=== PATIENT | male | born 1970 | race Caucasian/White ===

== ENCOUNTER 2019-12-16 08:22 | Outpatient (CLI) | payer OTHER, SELFPAY ==
--- NOTE | ~2019-12-16 | CT_ITS ---
EXAMINATION: CTA brain DATE: 12/16/2019 09:17 INDICATION: Vision loss in left eye for 4 hours. TECHNIQUE: Computed tomographic angiography (CTA) of the head was performed without and with 100 mL O mnipaque-350 intravenous contrast. Automated exposure control and iterative reconstruction technique were employed. The dose-length product was 1040.22 mGy-cm. Maximum intensity projection 3D reconstru ctions were created. Volume-rendered 3D reconstructions of the intracranial arteries were created by the technologist on a separate workstation. COMPARISON: None. FINDINGS: There is no intracranial hemorrhage, acute infarction, or abnormal intracranial mass lesion . The ventricles are normal in size. There is mucosal thickening in the paranasal sinuses. The mastoi d air cells are normal. The orbits are normal. The vertebral arteries are codominant. There is no sig nificant stenosis of basilar artery or the posterior cerebral arteries. The posterior communicating a rteries are normal. There is no significant stenosis of the intracranial internal carotid arteries or anterior or middle cerebral arteries. Anterior communicating artery is normal. There is no aneurysm. IMPRESSION: 1. Normal brain. No aneurysm or significant arterial stenosis. Reviewed, dictated and finalized at location A.
--- NOTE | ~2019-12-16 | US_ITS ---
EXAMINATION: US right upper quadrant DATE: 12/16/2019 09:04 INDICATION: Gallbladder polyp. TECHNIQUE: Multiple grayscale and Doppler ultrasound images of the abdomen were obtained. COMPARISON: Ultrasound 03/26/2016 FINDINGS: The visualized portions of the head and body of the pancreas are normal. The liver is kelly l without focal lesion. There is normal flow in main portal vein. The gallbladder is normal in size a nd contains multiple polyps measuring up to 3 mm. No gallstones or gallbladder wall thickening. There was no sonographic Patricia sign. The common duct is normal and measures 6 mm. IMPRESSION: 1. Small polyps in the gallbladder, likely benign. No follow-up needed. Reviewed, dictated and finalized at location A.
== END 2019-12-16 08:23 | disposition home or self-care (01) ==
PROVIDERS: PCP Emergency Medicine; Visit Provider Emergency Medicine
DX: H53.9 Unspecified visual disturbance (principal); K82.4 Cholesterolosis of gallbladder
CPT/HCPCS: 70496; 76705; Q9967

== ENCOUNTER 2019-12-29 07:24 | Outpatient (CLI) | payer OTHER, SELFPAY ==
--- NOTE | ~2019-12-29 | CT_ITS ---
EXAMINATION: CTA neck DATE: 12/29/2019 08:14 INDICATION: Visual disturbance. TECHNIQUE: Computed tomographic angiography (CTA) of the neck was performed with 100 mL Omnipaque-350 intravenous contrast. Automated exposure control and iterative reconstruction technique were employe d. The dose-length product was 549.54 mGy-cm. Maximum intensity projection 3D-reconstructions were cr eated by the technologist on a separate workstation. COMPARISON: Neck CT 02/21/2016 FINDINGS: There is mild scarring at the lung apices. There is mild emphysema. There are no pathologic ally enlarged lymph nodes. There is mucosal thickening in the paranasal sinuses. There is mild plaque in the proximal internal carotid arteries. There is 0% stenosis of the proximal right internal carot id artery relative to normal distal artery lumen diameter (NASCET criteria). There is 5% stenosis of the proximal left internal carotid artery relative to normal distal artery lumen diameter. There is n o significant stenosis of the vertebral arteries. There is extensive dental disease. There is mild ce rvical spondylosis. IMPRESSION: 1. 0% stenosis of the proximal right internal carotid artery relative to normal distal artery lumen d iameter (NASCET criteria). 2. 5% stenosis of the proximal left internal carotid artery relative to normal distal artery lumen di ameter. 3. Mild emphysema. 4. Extensive dental disease. Reviewed, dictated and finalized at location A. IMPRESSION: 1. 0% stenosis of the proximal right internal carotid artery relative to normal distal artery lumen diameter (NASCET criteria). 2. 5% stenosis of the proximal left internal carotid artery relative to normal distal artery lumen diameter. 3. Mild emphysema. 4. Extensive dental disease.
== END 2019-12-29 07:25 | disposition home or self-care (01) ==
PROVIDERS: PCP Emergency Medicine; Visit Provider Emergency Medicine
DX: I65.23 Occlusion and stenosis of bilateral carotid arteries (principal); J43.9 Emphysema, unspecified
CPT/HCPCS: 70498; Q9967

== ENCOUNTER → 2020-06-16 13:58 | Outpatient (CLI) | payer OTHER, SELFPAY ==
--- NOTE | ~2020-06-16 | XR_ITS ---
EXAMINATION: HAND-KARINE ARTHRITIS 3+VIEWS DATE: 06/16/2020 14:20 INDICATION: Rheumatoid arthritis TECHNIQUE: Posteroanterior, lateral, and oblique views of the left and of the right hands as well as a ballcatchers view of both hands were obtained. COMPARISON: None. FINDINGS: Normal alignment at the bilateral hands. No fractures. No cortical erosions to suggest an inflammator y arthritis. Mild polyarticular osteoarthritis characterized by mild nonuniform joint space narrowing and/or tiny marginal osteophytes at multiple bilateral interphalangeal joints. Bone islands at the h martha of the bilateral fifth metacarpals. IMPRESSION: 1. 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 No erosions to sug gest an inflammatory arthritis such as rheumatoid. Reviewed, dictated and finalized at location A. IAL AGENT SECRET SERVICE IMPRESSION: 1. Mild polyarticular osteoarthritis at multiple bilateral interphalangeal join ts. No erosions to suggest an inflammatory arthritis such as rheumatoid.
== END ==
PROVIDERS: PCP Internal Medicine; Visit Provider Internal Medicine
DX: M06.841 Other specified rheumatoid arthritis, right hand (principal); M06.842 Other specified rheumatoid arthritis, left hand
CPT/HCPCS: 73130

== ENCOUNTER 2022-06-27 10:10 | Outpatient (CLI) | payer OTHER, SELFPAY ==
--- NOTE | ~2022-06-27 | CT_ITS ---
EXAMINATION: CT lung screening DATE: 06/27/2022 10:28 INDICATION: Personal history of nicotine dependence, 35 pack year history TECHNIQUE: Computed tomography (CT) of the chest was performed without intravenous contrast. The dose -length product (DLP) was 73.99 mGy-cm. Automated exposure control and iterative reconstruction techn ique were employed. COMPARISON: None FINDINGS: There is mild emphysema. No suspicious pulmonary nodules are identified. The lungs are free of acute opacities. No pleural effusion or pneumothorax. No pathologically enlarged thoracic lymph n odes are identified. The heart size is normal. There is moderate thoracic spondylosis. IMPRESSION: 1. Lung-RADS category 1: Negative. Continue annual screening with noncontrast low-dose chest CT in 12 months. Reviewed, dictated and finalized at location A. AIMER IMPRESSION: 1. Lung-RADS category 1: Negative. Continue annual screening with noncontrast l ow-dose chest CT in 12 months.
== END 2022-06-27 10:11 | disposition home or self-care (01) ==
LOC: ANHIMG 10:14
PROVIDERS: PCP Emergency Medicine; Visit Provider Emergency Medicine
DX: Z12.2 Encounter for screening for malignant neoplasm of respiratory organs (principal); Z87.891 Personal history of nicotine dependence
CPT/HCPCS: 71271

== ENCOUNTER 2023-09-24 09:23 | Outpatient (CLI) | payer OTHER, SELFPAY ==
--- NOTE | ~2023-09-24 | CT_ITS ---
CT Scan of the Chest without Contrast: Clinical Indication: Lung cancer screening, personal history of nicotine dependence Technique: Contiguous sections were acquired throughout the chest without intravenous contrast. Dose reduction technique was used on this scan by utilizing automated exposure control and iterative recon struction technique. The dose-length product (DLP) was 73.24 mGy-cm. COMPARISON: 06/27/2022 Findings: There is no evidence of any significant mediastinal, hilar or axillary lymphadenopathy. The mediastin al soft tissues appear normal. There is no evidence of pleural or pericardial effusion. The lungs are clear. No pulmonary nodules or infiltrates are noted. Images through the upper abdomen reveal no abnormalities. Impression: Lung RADS 1: Negative. 12 month follow-up screening CT advised. Reviewed, dictated and finalized at location . Impression: Lung RADS 1: Negative. 12 month follow-up screening CT advised.
== END 2023-09-24 09:24 | disposition home or self-care (01) ==
LOC: ANHIMG 09:28
PROVIDERS: PCP Emergency Medicine; Visit Provider Emergency Medicine
DX: Z12.2 Encounter for screening for malignant neoplasm of respiratory organs (principal); Z87.891 Personal history of nicotine dependence
CPT/HCPCS: 71271

== ENCOUNTER 2024-11-10 10:30 | Outpatient (CLI) | payer OTHER, SELFPAY ==
--- NOTE | ~2024-11-10 | CT_ITS ---
CT Scan of the Chest without Contrast: Clinical Indication: Lung cancer screening, nicotine dependence Technique: Contiguous sections were acquired throughout the chest without intravenous contrast. Dose reduction technique was used on this scan by utilizing automated exposure control and iterative recon struction technique. The dose-length product (DLP) was 70.37 mGy-cm. COMPARISON: 09/24/2023 Findings: There is no evidence of any significant mediastinal, hilar or axillary lymphadenopathy. The mediastin al soft tissues appear normal. There is no evidence of pleural or pericardial effusion. The lungs are clear. No pulmonary nodules or infiltrates are noted. Images through the upper abdomen reveal no abnormalities. Impression: Lung RADS 1: Negative. 12 month follow-up screening CT advised. Reviewed, dictated and finalized at location . Impression: Lung RADS 1: Negative. 12 month follow-up screening CT advised.
--- OUTSIDE RECORDS SUMMARY | 2024-11-10 11:46 | XMS_ITS | Continuity of Care Document ---
Author Organization [facility] Address [address] [place] [address] Phone Care Team Providers Care Surgical Sales Representative Name Role Phone Iain Johnson MD Unavailable Unavailable Advance Directives Directive Yes / No Effective Date File Name No Information Encounters Encounter Description Practice Location Reason(s) For Visit Diagnoses Date Provider Providers Copied on Encounter [facility], [address], [place], [place], [id number], [place] tel:[phone] [address] [place] Professional No Information [address] Alex Timmons. [address] [facility] [address], [place], [place], [id number], [place]. tel:[phone] Family History Family Member Type Diagnosis Age At Onset No Information Payers Payer name Insurance type Covered alliance party ID Authoriza tion(s) No Information Social History Type Description Quantity Date Captured Comments Sex Male Smoking Status No Information Chief Complaint And Reason For Visit No Information Reason For Referral Reason For Referral No Information History Of Present Illness Encounter Date Complaint History Of Prese nt Illness No Information Functional Status Date Functional Assessmen t No Information Instructions Date Instruction Additional Infor mation No Information Assessments Type Assessment Date No Information Patient Care Teams Name Effective Dates (start - stop) Status Members No Information
--- OUTSIDE RECORDS SUMMARY | 2024-11-10 11:46 | XMS_ITS | Referral Summary ---
Author Organization [facility] al Address [address] [place] [address] Care Team Providers Care Mill Beam Fitter Name Role Phone Yoshi Toscano MD Primary Care Provider [phone] Allergies Active Allergy Reactions Criticality Noted Date Comments Latex Hives,Other (See comments) Medium 7 blisters Pollen Extracts Hives Medium 10/07/2016 Scallops Other (See comments) Low 10/07/2016 Per skin test Medications pantoprazole DR (PROTONIX) 40 mg EC tabletIndication s:Stress Ulcer Prophylaxis Take 1 tablet (40 mg total) by mouth 2 (two) times a day 60 tablet 05/14/2021 Active Active Problems Problem Noted Date Diagnosed Date Severe malnutrition 05/11/2021 Acute pancreatitis 05/09/2021 Gastritis without bleeding 05/09/2021 Crohn disease 05/09/2021 Rheumatoid arthritis 05/09/2021 Other emphysema 05/09/2021 Social History Tobacco Use Types Packs/Day Years Used Date Smoking Tobacco: Former Smokeless Tobacco: Former Personal Safety Answer Date Recorded Getting School Help Needed Not on file 09/07 Sex and Gender Information Value Date Recorded Sex Assigned at Not on file 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 Gender Identity Not on file Sexual Orientation Not on file Last Filed Vital Signs Vital Sign Reading Time Taken Comments Blood Pressure 118/80 05/14/2021 2:52 PM CDT Pulse 62 05/14/2021 2:52 PM CDT Temperature 36.7 C (98 F) 05/14/2021 2:52 PM CDT Respiratory Rate 16 05/14/2021 2:52 PM CDT Oxygen Saturation 98% 05/14/2021 2:52 PM CDT Inhaled Oxygen Concentration - - Weight 50.5 kg (111 lb 4.8 oz) 05/10/2021 2:20 A M CDT Height 167.6 cm (5' 6 ) 05/10/2021 2:20 AM CDT Body Mass Index 17.96 05/10/2021 2:20 AM CDT Plan of Treatment Not on file Insurance Advance Directives For more information, please contact: [phone] * Full Code (Latest Code Status on File) Date Activated Date Inactivated Comments 05/10/2021 2:15 AM 05/15/2021 12:05 AM Care Teams Mill Beam Fitter Relationship Specialty Start Date End Date Yoshi Toscano MD PCP - General 10/10/16
--- OUTSIDE RECORDS SUMMARY | 2024-11-10 11:46 | XMS_ITS | Clinical Summary ---
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) Rheumatoid arthritis involving multiple sites with positive rheumatoid factor - (Added by TW Conv) Other ferry terminal agent (current) drug therapy High risk medications (not anticoagulants) long-term use - (Added by TW Conv) Family History Medical History Relation Name Comments Diabetes Mother Hypertension Mother Arthritis Paternal Grandmother Relation Name Status Comments Mother Paternal Grandmother Social History Tobacco Use Types Packs/Day Years Used Date Smoking Tobacco: Former Smokeless Tobacco: Former Personal Safety Answer Date Recorded Getting School Help Needed Not on file 09/07 Sex and Gender Information Value Date Recorded Sex Assigned at Not on file 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
--- OUTSIDE RECORDS SUMMARY | 2024-11-10 11:46 | XMS_ITS | Continuity of Care Document ---
Author Organization [facility] Address [address] [place] [address] [place] [address] Phone Care Team Providers [employer] Name Role Phone Yoshi Toscano MD Unavailable Unavailable Allergies, Adverse Reactions, Alerts Substance Reaction Status Criticality No Known Allergies Active No Inform ation Medications Medication Instructions Dosage Effective Dates (start - stop) Status Comments hydrocodone 7.5 mg-acetaminophen 325 mg tablet take 1 tablet by oral route 2 times every day as needed for pain as needed 1 tablet - Active PRN for pain, avoid driving or operate machines albuterol sulfate HFA 90 mcg/actuation aerosol inhaler inhale 1 puff by inhalation route every 4 - 6 hours as needed 1 puff - Active PRN for sob Plaquenil 200 mg tablet take 1 tablet by oral route 2 times every day 200 MG - Active Procedures Procedure Date OFFICE/OUTPATIENT VISIT, EST OFFICE/OUTPATIENT VISIT, EST OFFICE/OUTPATIENT VISIT, EST OFFICE/OUTPATIENT VISIT, EST OFFICE/OUTPATIENT VISIT, EST OFFICE/OUTPATIENT VISIT, EST PREV VISIT, EST, AGE 40-64 OFFICE/OUTPATIENT VISIT, EST OFFICE/OUTPATIENT VISIT, EST OFFICE/OUTPATIENT VISIT, EST OFFICE/OUTPATIENT VISIT, EST OFFICE/OUTPATIENT VISIT, EST OFFICE/OUTPATIENT VISIT, EST OFFICE/OUTPATIENT VISIT, EST OFFICE/OUTPATIENT VISIT, EST OFFICE/OUTPATIENT VISIT, EST OFFICE/OUTPATIENT VISIT, EST OFFICE/OUTPATIENT VISIT, EST OFFICE/OUTPATIENT VISIT, EST OFFICE/OUTPATIENT VISIT, EST OFFICE/OUTPATIENT VISIT, EST OFFICE/OUTPATIENT VISIT, EST OFFICE/OUTPATIENT VISIT, EST PREV VISIT, EST, AGE 40-64 Dec- OFFICE/OUTPATIENT VISIT, EST OFFICE/OUTPATIENT VISIT, EST OFFICE/OUTPATIENT VISIT, EST OFFICE/OUTPATIENT VISIT, EST OFFICE/OUTPATIENT VISIT, EST OFFICE/OUTPATIENT VISIT, EST OFFICE/OUTPATIENT VISIT, EST OFFICE/OUTPATIENT VISIT, EST OFFICE/OUTPATIENT VISIT, EST OFFICE/OUTPATIENT VISIT, EST OFFICE/OUTPATIENT VISIT, EST OFFICE/OUTPATIENT VISIT, EST PREV VISIT, EST, AGE 40-64 November- OFFICE/OUTPATIENT VISIT, EST OFFICE/OUTPATIENT VISIT, EST OFFICE/OUTPATIENT VISIT, EST OFFICE/OUTPATIENT VISIT, EST OFFICE/OUTPATIENT VISIT, EST OFFICE/OUTPATIENT VISIT, EST OFFICE/OUTPATIENT VISIT, EST OFFICE/OUTPATIENT VISIT, EST OFFICE/OUTPATIENT VISIT, EST OFFICE/OUTPATIENT VISIT, EST OFFICE/OUTPATIENT VISIT, EST OFFICE/OUTPATIENT VISIT, EST OFFICE/OUTPATIENT VISIT, EST OFFICE/OUTPATIENT VISIT, EST OFFICE/OUTPATIENT VISIT, EST OFFICE/OUTPATIENT VISIT, EST OFFICE/OUTPATIENT VISIT, EST OFFICE/OUTPATIENT VISIT, EST OFFICE/OUTPATIENT VISIT, EST PREV VISIT, EST, AGE 40-64 OFFICE/OUTPATIENT VISIT, EST OFFICE/OUTPATIENT VISIT, EST OFFICE/OUTPATIENT VISIT, EST OFFICE/OUTPATIENT VISIT, EST OFFICE/OUTPATIENT VISIT, EST OFFICE/OUTPATIENT VISIT, EST OFFICE/OUTPATIENT VISIT, EST OFFICE/OUTPATIENT VISIT, EST OFFICE/OUTPATIENT VISIT, EST OFFICE/OUTPATIENT VISIT, EST OFFICE/OUTPATIENT VISIT, EST OFFICE/OUTPATIENT VISIT, EST PREV VISIT, EST, AGE 40-64 OFFICE/OUTPATIENT VISIT, EST OFFICE/OUTPATIENT VISIT, EST OFFICE/OUTPATIENT VISIT, EST OFFICE/OUTPATIENT VISIT, EST OFFICE/OUTPATIENT VISIT, EST OFFICE/OUTPATIENT VISIT, EST OFFICE/OUTPATIENT VISIT, EST OFFICE/OUTPATIENT VISIT, EST OFFICE/OUTPATIENT VISIT, EST OFFICE/OUTPATIENT VISIT, EST PREV VISIT, EST, AGE 40-64 OFFICE/OUTPATIENT VISIT, EST OFFICE/OUTPATIENT VISIT, EST OFFICE/OUTPATIENT VISIT, EST OFFICE/OUTPATIENT VISIT, EST OFFICE/OUTPATIENT VISIT, EST OFFICE/OUTPATIENT VISIT, EST OFFICE/OUTPATIENT VISIT, EST OFFICE/OUTPATIENT VISIT, EST PREV VISIT, EST, AGE 40-64 OFFICE/OUTPATIENT VISIT, EST OFFICE/OUTPATIENT VISIT, EST OFFICE/OUTPATIENT VISIT, EST OFFICE/OUTPATIENT VISIT, EST OFFICE/OUTPATIENT VISIT, EST OFFICE/OUTPATIENT VISIT, EST OFFICE/OUTPATIENT VISIT, EST OFFICE/OUTPATIENT VISIT, EST OFFICE/OUTPATIENT VISIT, EST PREV VISIT, EST, AGE 40-64 OFFICE/OUTPATIENT VISIT, EST OFFICE/OUTPATIENT VISIT, EST OFFICE/OUTPATIENT VISIT, EST OFFICE/OUTPATIENT VISIT, EST OFFICE/OUTPATIENT VISIT, EST OFFICE/OUTPATIENT VISIT, EST OFFICE/OUTPATIENT VISIT, EST OFFICE/OUTPATIENT VISIT, EST OFFICE/OUTPATIENT VISIT, EST OFFICE/OUTPATIENT VISIT, EST OFFICE/OUTPATIENT VISIT, EST OFFICE/OUTPATIENT VISIT, EST OFFICE/OUTPATIENT VISIT, EST OFFICE/OUTPATIENT VISIT, EST OFFICE/OUTPATIENT VISIT, EST Advance Directives Directive Yes / No Effective Date File Name No Information Encounters Encounter Description Practice Location Reason(s) For Visit Diagnoses Date Provider Providers Copied on Encounter OFFICE/OUTPA TIENT VISIT, [facility], [address] [place], [address], tel:[phone] [facility] Medicine pain (chief complaint) Chronic pain syndrome 5 Everton Belle. [address], [address] [place], [address] , [place]. tel:[phone] OFFICE/OUTPA TIENT VISIT, [facility], [address] [place], [address], tel:[phone] [facility] Medicine pain (chief complaint)te nsion (chief complaint)to bacco1 (chief complaint) Chronic pain syndromeTension headachePersonal history of nicotine dependence 5 Everton Belle. [address], [address] [place], [address] , [place]. tel:[phone] OFFICE/OUTPA TIENT VISIT, [facility], [address], [place], [place], [address], [place] tel:[phone] [facility] Family Medicine pain (chief complaint)he adache1 (chief complaint) Chronic pain syndromeTension headache 5 Everton Florian [address], [address], [place], [place], [address] , [place]. tel:[phone] OFFICE/OUTPA TIENT VISIT, EST [facility], [address], [place], [place], [address], [place] tel:[phone] [facility] pain (chief complaint)he adache1 (chief complaint) Tension headacheChronic pain syndrome 5 Everton Florian [address], [address], [place], [place], [address] , [place]. tel:[phone] OFFICE/OUTPA TIENT VISIT, EST [facility], [address], [place], [place], [address], [place] tel:[phone] [facility] pain (chief complaint)CO PD1 (chief complaint) Centrilobular emphysemaChronic pain syndrome 4 Everton Florian [address], [address], [place], [place], [address] , [place]. tel:[phone] OFFICE/OUTPA TIENT VISIT, EST [facility], [address], [place], [place], [address], [place] tel:[phone] [facility] Medicine glucose1 (chief complaint)HL P (chief complaint)RA (chief complaint) Rheumatoid arthritisHypergly cemiaMixed hyperlipidemia 4 Everton Florian [address], [address], [place], [place], [address] , [place]. tel:[phone] PREV VISIT, EST, AGE 40-64 [facility], [address], [place], [place], [address], [place] tel:[phone] [facility] Medicine physical (chief complaint) Encounter for general adult medical examination without abnormal findings 4 Everton Belle. [address], [address], [place], [place], [address] , [place]. tel:[phone] OFFICE/OUTPA TIENT VISIT, EST [facility], [address], [place], [place], [address], [place] tel:[phone] [facility] Family Medicine pain (chief complaint) Rheumatoid arthritisChronic pain syndrome 4 Toscano Yoshi. [address], [address], [place], [place], [address] , [place]. tel:[phone] OFFICE/OUTPA TIENT VISIT, [facility], [address], [place], [place], [address], [place] tel:[phone] [facility] Medicine pain (chief complaint) Chronic pain syndrome 4 Toscano Yoshi. [address], [address], [place], [place], [address] , [place]. tel:[phone] OFFICE/OUTPA TIENT VISIT, [facility], [address], [place], [place], [address], [place] tel:[phone] [facility] Medicine pain (chief complaint) Rheumatoid arthritis 4 Toscano Yoshi. [address], [place], [place], [address] , [place]. tel:[phone] OFFICE/OUTPA TIENT VISIT, [facility], [address], [place], [place], [address], [place] tel:[phone] [facility] RA (chief complaint) Rheumatoid arthritis 4 Toscano Yoshi. [address], [address], [place], [place], [address] , [place]. tel:[phone] OFFICE/OUTPA TIENT VISIT, [facility], [address], [place], [place], [address], [place] tel:[phone] [facility] RA (chief complaint) Chronic pain syndrome 4 Toscano Yoshi. [address], [address], [place], [place], [address] , [place]. tel:[phone] OFFICE/OUTPA TIENT VISIT, [facility], [address], [place], [place], [address], [place] tel:[phone] [facility] Medicine pain (chief complaint) Chronic pain syndrome 4 Toscano Yoshi. [address], [address], [place], [place], [address] , [place]. tel:[phone] OFFICE/OUTPA TIENT VISIT, [facility], [address], [place], [address], [place] tel:[phone] [facility] Medicine pain (chief complaint) Chronic pain syndromeTobacco use 4 Toscano Yoshi. [address], [place], [place], [address] , [place]. tel:[phone] OFFICE/OUTPA TIENT VISIT, [facility], [address], [place], [place], [address], [place] tel:[phone] [facility] Medicine pain (chief complaint)CO PD1 (chief complaint)to bacco1 (chief complaint) Centrilobular emphysemaChronic pain syndromeTobacco use 4 Toscano Yoshi. [address], [place], [place], [address] , [place]. tel:[phone] OFFICE/OUTPA TIENT VISIT, [facility], [address], [place], [place], [address], [place] tel:[phone] [facility] Medicine pain (chief complaint)ga llbladder1 (chief complaint) Cholesterolosis of gallbladderChroni c pain syndrome 4 Everton Belle. [address], [address], [place], [place], [address] , [place]. tel:[phone] OFFICE/OUTPA TIENT VISIT, [facility], [address], [place], [place], [address], [place] tel:[phone] [facility] Medicine pain (chief complaint) Chronic pain syndrome 4 Toscano Yoshi. [address], [address], [place], [place], [address] , [place]. tel:[phone] OFFICE/OUTPA TIENT VISIT, [facility], [address], [place], [place], [address], [place] tel:[phone] [facility] Medicine pain (chief complaint) Chronic pain syndrome 3 Toscano Yoshi. [address], [place], [place], [address] , [place]. tel:[phone] OFFICE/OUTPA TIENT VISIT, [facility], [address], [place], [place], [address], [place] tel:[phone] [facility] Medicine pain (chief complaint) Chronic pain syndrome 3 Toscano Yoshi. [address], [place], [place], [address] , [place]. tel:[phone] OFFICE/OUTPA TIENT VISIT, [facility], [address], [place], [place], [address], [place] tel:[phone] [facility] Medicine pain (chief complaint)CO PD1 (chief complaint) Centrilobular emphysemaChronic pain syndrome 3 Toscano Yoshi. [address], [place], [place], [address] , [place]. tel:[phone] OFFICE/OUTPA TIENT VISIT, [facility], [address], [place], [place], [address], [place] tel:[phone] [facility] Medicine pain (chief complaint) Chronic pain syndrome 3 Toscano Yoshi. [address], [place], [place], [address] , [place]. tel:[phone] OFFICE/OUTPA TIENT VISIT, [facility], [address], [place], [place], [address], [place] tel:[phone] [facility] Medicine pain (chief complaint) Chronic pain syndrome 3 Toscano Yoshi. [address], [address], [place], [place], [address] , [place]. tel:[phone] OFFICE/OUTPA TIENT VISIT, [facility], [address], [place], [place], [address], [place] tel:[phone] [facility] Medicine pain (chief complaint) Chronic pain syndrome 3 Everton Belle. [address], [address], [place], [place], [address] , [place]. tel:[phone] PREV VISIT, EST, AGE 40-64 [facility], [address], [place], [place], [address], [place] tel:[phone] [facility] physical (chief complaint) Encounter for general adult medical examination without abnormal findings 3 Everton Belle. [address], [place], [place], [address] , [place]. tel:[phone] OFFICE/OUTPA TIENT VISIT, [facility], [address], [place], [place], [address], [place] tel:[phone] [facility] Medicine pain (chief complaint)ga llbladder1 (chief complaint) Cholesterolosis of gallbladderChroni c pain syndrome 3 Everton Belle. [address], [place], [place], [address] , [place]. tel:[phone] OFFICE/OUTPA TIENT VISIT, [facility], [address], [place], [place], [address], [place] tel:[phone] [facility] Medicine pain (chief complaint)ga llbladder (chief complaint) Chronic pain syndromeCholester olosis of gallbladder 3 Everton Belle. [address], [place], [place], [address] , [place]. tel:[phone] OFFICE/OUTPA TIENT VISIT, EST [facility], [address], [place], [address], [place] tel:[phone] [facility] Medicine pain (chief complaint) Chronic pain syndrome 3 Everton Belle. [address], [address], [place], [address] , [place]. tel:[phone] OFFICE/OUTPA TIENT VISIT, [facility], [address], [place], [place], [address], [place] tel:[phone] [facility] pain (chief complaint)CO PD1 (chief complaint) Chronic pain syndromeCentrilob ular emphysema 3 Everton Belle. [address], [place], [place], [address] , [place]. tel:[phone] OFFICE/OUTPA TIENT VISIT, [facility], [address], [place], [place], [address], [place] tel:[phone] [facility] pain (chief complaint)to bacco1 (chief complaint) Centrilobular emphysemaChronic pain syndrome 3 Everton Belle. [address], [place], [place], [address] , [place]. tel:[phone] OFFICE/OUTPA TIENT VISIT, [facility], [address], [place], [place], [address], [place] tel:[phone] [facility] HLP (chief complaint)pa in (chief complaint)fa tigue1 (chief complaint) Mixed hyperlipidemiaChr onic pain syndromeTobacco useFatigue 2 Everton Belle. [address], [place], [place], [address] , [place]. tel:[phone] OFFICE/OUTPA TIENT VISIT, [facility], [address], [place], [place], [address], [place] tel:[phone] [facility] pain (chief complaint)CO PD1 (chief complaint)fa tigue1 (chief complaint) Chronic pain syndromeTobacco useCentrilobular emphysemaFatigueB PH w/o lower urinary tract symptoms 2 Everton Belle. [address], [place], [place], [address] , [place]. tel:[phone] OFFICE/OUTPA TIENT VISIT, [facility], [address], [place], [place], [address], [place] tel:[phone] [facility] Medicine pain (chief complaint) Chronic pain syndromeTobacco use 2 Everton Belle. [address], [address], [place], [place], [address] , [place]. tel:[phone] OFFICE/OUTPA TIENT VISIT, [facility], [address], [place], [place], [address], [place] tel:[phone] [facility] Medicine pain (chief complaint)to bacco1 (chief complaint) Chronic pain syndromeTobacco use 2 Everton Belle. [address], [place], [place], [address] , [place]. tel:[phone] OFFICE/OUTPA TIENT VISIT, [facility], [address], [place], [place], [address], [place] tel:[phone] [facility] Medicine pain (chief complaint)pa ncreatitis1 (chief complaint) Chronic pain syndromeOther acute pancreatitis without necrosis or infection 2 Everton Belle. [address], [place], [address] , [place]. tel:[phone] OFFICE/OUTPA TIENT VISIT, [facility], [address], [place], [place], [address], [place] tel:[phone] [facility] pain (chief complaint)em physema1 (chief complaint) Centrilobular emphysemaChronic pain syndrome 2 Everton Yoshi. [address], [place], [place], [address] , [place]. tel:[phone] OFFICE/OUTPA TIENT VISIT, [facility], [address], [place], [place], [address], [place] tel:[phone] [facility] Medicine pain1 (chief complaint)ga llbladder polyp1 (chief complaint)sl eep apnea1 (chief complaint) Rheumatoid arthritisAcute pancreatitis w/o necrosisCholester olosis of gallbladderPrimar y central sleep apnea 2 Toscano Yoshi. [address], [place], [place], [address] , [place]. tel:[phone] PREV VISIT, EST, AGE 40-64 [facility], [address], [place], [place], [address], [place] tel:[phone] [facility] physical (chief complaint) Encounter for general adult medical examination without abnormal findings 2 Everton Belle. [address], [address], [place], [place], [address] , [place]. tel:[phone] OFFICE/OUTPA TIENT VISIT, EST [facility], [address], [place], [place], [address], [place] tel:[phone] [facility] pain (chief complaint)sl eep apnea1 (chief complaint)CO PD1 (chief complaint) Primary central sleep apneaCentrilobula r emphysemaChronic pain syndromeChronic pancreatitis NOS 2 Everton Florian [address], [address], [place], [place], [address] , [place]. [phone] OFFICE/OUTPA TIENT VISIT, EST [facility], [address], [place], [place], [address], [place] tel:[phone] [facility] sleep apnea1 (chief complaint)pa ncreatitis1 (chief complaint)RA (chief complaint)CO PD1 (chief complaint) EmphysemaSleep apneaAcute pancreatitis w/o necrosisRheumatoi d arthritis 2 Everton Florian [address], [address], [place], [place], [address] , [place]. [phone] OFFICE/OUTPA TIENT VISIT, EST [facility], [address], [place], [place], [address], [place] tel:[phone] [facility] RA (chief complaint)pa ncreatitis1 (chief complaint) Rheumatoid arthritisChronic pancreatitis NOS 2 Everton Belle. [address], [address], [place], [place], [address] , [place]. tel:[phone] OFFICE/OUTPA TIENT VISIT, [facility], [address], [place], [place], [address], [place] tel:[phone] [facility] sleep apnea1 (chief complaint)pa in1 (chief complaint)pa ncreatitis1 (chief complaint)CO PD1 (chief complaint) Chronic pain syndromeSleep apneaCrohn's disease of large intestine without complicationsAcut e pancreatitis w/o necrosisEmphysema 2 Everton Belle. [address], [address], [place], [place], [address] , [place]. tel:[phone] OFFICE/OUTPA TIENT VISIT, [facility], [address], [place], [place], [address], [place] tel:[phone] [facility] leobardo (chief complaint)pa ncreatitis1 (chief complaint)we ight loss1 (chief complaint) Chronic pain syndromeAbnormal weight lossChronic pancreatitis NOSSleep apnea 1 Everton Belle. [address], [place], [place], [address] , [place]. tel:[phone] OFFICE/OUTPA TIENT VISIT, [facility], [address], [place], [place], [address], [place] tel:[phone] [facility] pancreatitis 1 (chief complaint)pa in (chief complaint)we ight loss1 (chief complaint) Acute pancreatitis w/o necrosisRheumatoi d arthritisAbnormal weight lossCrohn's disease of large intestine without complications 1 Everton Belle. [address], [place], [place], [address] , [place]. tel:[phone] OFFICE/OUTPA TIENT VISIT, [facility], [address], [place], [place], [address], [place] tel:[phone] [facility] pain (chief complaint)sl eep apnea1 (chief complaint)CO PD1 (chief complaint) Chronic pain syndromeEmphysema 1 Everton Florian [address], [place], [place], [address] , [place]. tel:[phone] OFFICE/OUTPA TIENT VISIT, [facility], [address], [place], [place], [address], [place] tel:[phone] [facility] Medicine pain (chief complaint)sl eep apnea1 (chief complaint) Rheumatoid arthritisSleep apnea 1 Everton Florian [address], [place], [place], [address] , [place]. tel:[phone] OFFICE/OUTPA TIENT VISIT, [facility], [address], [place], [place], [address], [place] tel:[phone] [facility] pain (chief complaint)sl eep apnea1 (chief complaint) Chronic pain syndromeSleep apnea 1 Everton Florian [address], [place], [place], [address] , [place]. tel:[phone] OFFICE/OUTPA TIENT VISIT, [facility], [address], [place], [place], [address], [place] tel:[phone] [facility] pain (chief complaint)CO PD1 (chief complaint)fa tigue1 (chief complaint) FatigueRheumatoid arthritisEmphysem a 1 Everton Florian [address], [place], [place], [address] , [place]. tel:[phone] OFFICE/OUTPA TIENT VISIT, [facility], [address], [place], [place], [address], [place] tel:[phone] [facility] pain (chief complaint)pa in (chief complaint) Rheumatoid arthritisFatigue 1 Everton Florian [address], [place], [place], [address] , [place]. tel:[phone] OFFICE/OUTPA TIENT VISIT, [facility], [address], [place], [address], [place] tel:[phone] [facility] Medicine fatigue1 (chief complaint)pa in (chief complaint) FatigueRheumatoid arthritis 1 Everton Belle. [address], [place], [place], [address] , [place]. tel:[phone] OFFICE/OUTPA TIENT VISIT, [facility], [address], [place], [place], [address], [place] tel:[phone] [facility] pain (chief complaint) Rheumatoid arthritisChronic pain syndrome 1 Everton Belle. [address], [place], [place], [address] , [place]. tel:[phone] OFFICE/OUTPA TIENT VISIT, [facility], [address], [place], [place], [address], [place] tel:[phone] [facility] pain (chief complaint) Rheumatoid arthritisOther spondylosis, lumbar region 1 Toscano Yoshi. [address], [place], [place], [address] , [place]. tel:[phone] OFFICE/OUTPA TIENT VISIT, [facility], [address], [place], [place], [address], [place] tel:[phone] [facility] pain (chief complaint) Rheumatoid arthritisOther spondylosis, lumbar region 1 Everton Yoshi. [address], [place], [place], [address] , [place]. tel:[phone] OFFICE/OUTPA TIENT VISIT, [facility], [address], [place], [place], [address], [place] tel:[phone] [facility] pain (chief complaint) Rheumatoid arthritisLumbago with sciatica, left side Jul- 1 Toscano Yoshi. [address], [place], [place], [address] , [place]. tel:[phone] OFFICE/OUTPA TIENT VISIT, [facility], [address], [place], [place], [address], [place] tel:[phone] [facility] COPD1 (chief complaint)pa in (chief complaint) Rheumatoid arthritisEmphysem a 0 Toscano Yoshi. [address], [place], [place], [address] , [place]. tel:[phone] OFFICE/OUTPA TIENT VISIT, [facility], [address], [place], [place], [address], [place] tel:[phone] [facility] Ra (chief complaint) Rheumatoid arthritisChronic pain syndrome 0 Toscano Yoshi. [address], [place], [place], [address] , [place]. tel:[phone] OFFICE/OUTPA TIENT VISIT, EST [facility], [address], [place], [place], [address], [place] tel:[phone] [facility] RA (chief complaint)em physema1 (chief complaint) EmphysemaRheumato id arthritis 0 Toscano Yoshi. [address], [place], [place], [address] , [place]. tel:[phone] PREV VISIT, EST, AGE 40-64 [facility], [address], [place], [place], [address], [place] tel:[phone] [facility] physical (chief complaint) Encntr for general adult medical exam w/o abnormal findings Mar- 0 Toscano Yoshi. [address], [place], [place], [address] , [place]. tel:[phone] OFFICE/OUTPA TIENT VISIT, [facility], [address], [place], [place], [address], [place] tel:[phone] [facility] sick (chief complaint) Upper respiratory infection Mar- 0 Everton Yoshi. [address], [place], [place], [address] , [place]. tel:[phone] OFFICE/OUTPA TIENT VISIT, [facility], [address], [place], [place], [address], [place] tel:[phone] [facility] pain (chief complaint)CO PD1 (chief complaint) Rheumatoid arthritisEmphysem a 0 Everton Belle. [address], [place], [place], [address] , [place]. tel:[phone] OFFICE/OUTPA TIENT VISIT, [facility], [address], [place], [place], [address], [place] [phone] [facility] floaters (chief complaint)CO PD1 (chief complaint)RA (chief complaint) Rheumatoid arthritisEmphysem aVisual disturbance 0 Everton Belle. [address], [place], [place], [address] , [place]. tel:[phone] OFFICE/OUTPA TIENT VISIT, [facility], [address], [place], [place], [address], [place] [phone] [facility] gallbladder1 (chief complaint)pa in (chief complaint)vi sion1 (chief complaint) Rheumatoid arthritisCholeste rolosis of gallbladderVisual disturbance 0 Everton Belle. [address], [place], [place], [address] , [place]. [phone] OFFICE/OUTPA TIENT VISIT, [facility], [address], [place], [place], [address], [place] tel:[phone] [facility] pain (chief complaint)ey e (chief complaint)ga llbladder polyp1 (chief complaint) Rheumatoid arthritisVisual disturbanceCholes terolosis of gallbladder 0 Everton Belle. [address], [place], [place], [address] , [place]. tel:[phone] OFFICE/OUTPA TIENT VISIT, [facility], [address], [place], [place], [address], [place] tel:[phone] [facility] pain (chief complaint)ey e1 (chief complaint) Visual disturbanceChroni c pain syndrome 0 Everton Florian [address], [place], [place], [address] , [place]. tel:[phone] OFFICE/OUTPA TIENT VISIT, [facility], [address], [place], [place], [address], [place] tel:[phone] [facility] Medicine dizziness1 (chief complaint)pa in1 (chief complaint)CO PD1 (chief complaint) Chronic pain syndromeVisual disturbanceDizzin essEmphysema 0 Everton Florian [address], [place], [place], [address] , [place]. tel:[phone] OFFICE/OUTPA TIENT VISIT, [facility], [address], [place], [place], [address], [place] tel:[phone] [facility] pain (chief complaint) Rheumatoid arthritisChronic pain syndrome 0 Everton Florian [address], [place], [place], [address] , [place]. tel:[phone] OFFICE/OUTPA TIENT VISIT, [facility], [address], [place], [place], [address], [place] tel:[phone] [facility] pain (chief complaint)CO PD1 (chief complaint) Rheumatoid arthritisEmphysem a 0 Everton Florian [address], [place], [place], [address] , [place]. tel:[phone] Referring Provider: Yoshi Toscano [address], [place], [place], [address]. tel:[phone] OFFICE/OUTPA TIENT VISIT, [facility], [address], [place], [place], [address], [place] tel:[phone] [facility] chronic pain1 (chief complaint) Rheumatoid arthritisChronic pain syndrome 9 Toscano Yoshi. [address], [place], [place], [address] , [place]. tel:[phone] Referring Provider: Sheldon Morales [address], [place], [place], [address]. tel:[phone] OFFICE/OUTPA TIENT VISIT, [facility], [address], [place], [place], [address], [place] tel:[phone] [facility] chronic pain1 (chief complaint)ga llbladder (chief complaint) Cholesterolosis of gallbladderRheuma toid arthritis 9 Everton Belle. [address], [place], [place], [address] , [place]. tel:[phone] Referring Provider: Sheldon Morales [address], [place], [place], [address]. tel:[phone] OFFICE/OUTPA TIENT VISIT, [facility], [address], [place], [place], [address], [place] tel:[phone] [facility] gallbladder polyp (chief complaint)RA (chief complaint)CO PD (chief complaint) EmphysemaCholeste rolosis of gallbladderRheuma toid arthritis 9 Everton Belle. [address], [place], [place], [address] , [place]. tel:[phone] Referring Provider: Sheldon Morales [address], [place], [place], [address]. tel:[phone] PREV VISIT, EST, AGE 40-64 [facility], [address], [place], [place], [address], [place] tel:[phone] [facility] PHysical (chief complaint) Encntr for general adult medical exam w/o abnormal findings 9 Everton Belle. [address], [place], [place], [address] , [place]. tel:[phone] Referring Provider: Sheldon Morales [address], [place], [place], [address]. tel:[phone] OFFICE/OUTPA TIENT VISIT, [facility], [address], [place], [place], [address], [place] tel:[phone] [facility] Medicine COPD1 (chief complaint)ch ronic pain1 (chief complaint) EmphysemaChronic pain syndrome 9 Everton Belle. [address], [place], [place], [address] , [place]. tel:[phone] Referring Provider: Yoshi Toscano [address], [place], [place], [address]. tel:[phone] OFFICE/OUTPA TIENT VISIT, [facility], [address], [place], [place], [address], [place] tel:[phone] [facility] chronic pain (chief complaint)so b1 (chief complaint)ga llbladder polyp (chief complaint) Chronic pain syndromeCholester olosis of gallbladderShortn ess of breath 9 Everton Belle. [address], [place], [place], [address] , [place]. tel:[phone] Referring Provider: Sheldon Mor[address], [place], [address]. tel:[phone] OFFICE/OUTPA TIENT VISIT, [facility], [address], [place], [place], [address], [place] tel:[phone] [facility] chronic pain1 (chief complaint)so b1 (chief complaint)ba ck 1 (chief complaint)ga llbladder1 (chief complaint) Rheumatoid arthritisShortnes s of breathChronic pain syndromeCholester olosis of gallbladder 9 Everton Belle. [address], [place], [place], [address] , [place]. tel:[phone] OFFICE/OUTPA TIENT VISIT, [facility], [address], [place], [place], [address], [place] tel:[phone] [facility] Medicine RA1 (chief complaint)so b1 (chief complaint)kn ee pain1 (chief complaint) Chronic pain syndromeRheumatoi d arthritisShortnes s of breath 9 Everton Belle. [address], [place], [place], [address] , [place]. tel:[phone] Referring Provider: Sheldon Morales [address], [place], [place], [address]. tel:[phone] OFFICE/OUTPA TIENT VISIT, [facility], [address], [place], [place], [address], [place] tel:[phone] [facility] pain1 (chief complaint) Rheumatoid arthritisChronic pain syndrome 9 Everton Belle. [address], [place], [place], [address] , [place]. tel:[phone] Referring Provider: Sheldon Morales [address], [place], [place], [address]. tel:[phone] OFFICE/OUTPA TIENT VISIT, [facility], [address], [place], [place], [address], [place] tel:[phone] [facility] Medicine RA1 (chief complaint)ve nous1 (chief complaint)ch ronic pain1 (chief complaint) Varicose veins of right lower extremity with painRheumatoid arthritisChronic pain syndrome 9 Everton Belle. [address], [place], [place], [address] , [place]. tel:[phone] Referring Provider: Sheldon Morales [address], [place], [place], [address]. tel:[phone] OFFICE/OUTPA TIENT VISIT, [facility], [address], [place], [place], [address], [place] tel:[phone] [facility] chronic pain1 (chief complaint)li ver1 (chief complaint) Liver diseaseChronic pain syndrome 9 Everton Belle. [address], [place], [place], [address] , [place]. tel:[phone] Referring Provider: Sheldon Morales [address], [place], [place], [address]. tel:[phone] OFFICE/OUTPA TIENT VISIT, [facility], [address], [place], [place], [address], [place] tel:[phone] [facility] liver lesion1 (chief complaint)kn ee pain1 (chief complaint)le g lesion1 (chief complaint) Liver diseaseChronic pain syndromeVaricose veins of right lower extremity with pain 9 Everton Belle. [address], [place], [place], [address] , [place]. tel:[phone] OFFICE/OUTPA TIENT VISIT, [facility], [address], [place], [place], [address], [place] tel:[phone] [facility] liver lesion1 (chief complaint)kn ee pain1 (chief complaint) Liver diseaseChronic pain syndrome 8 Everton Belle. [address], [place], [place], [address] , [place]. tel:[phone] Referring Provider: She[address]on Mor[address], [place], [place], [address]. tel:[phone] OFFICE/OUTPA TIENT VISIT, [facility], [address], [place], [place], [address], [place] tel:[phone] [facility] hemorrhoid1 (chief complaint)ga llbladder polyp1 (chief complaint)li miko lesion (chief complaint)kn ee pain1 (chief complaint) Abdominal painLiver diseaseCholestero losis of gallbladderRheuma toid arthritisChronic pain syndrome 8 Everton Belle. [address], [place], [place], [address] , [place]. tel:[phone] Referring Provider: She[address]on Mor[address], [place], [place], [address]. tel:[phone] PREV VISIT, EST, AGE 40-64 [facility], [address], [place], [place], [address], [place] tel:[phone] [facility] Physical (chief complaint) Encounter for general adult medical exam w abnormal findingsChronic pain syndromeDisease of gallbladder, unspecified 8 Everton Belle. [address], [place], [place], [address] , [place]. tel:[phone] Referring Provider: Yoshi Toscano, [address], [place], [place], [address]. tel:[phone] OFFICE/OUTPA TIENT VISIT, [facility], [address], [place], [place], [address], [place] tel:[phone] [facility] knee pain1 (chief complaint)RA (chief complaint) Chronic pain syndromeRheumatoi d arthritis 8 Everton eBlle. [address], [place], [place], [address] , [place]. tel:[phone] OFFICE/OUTPA TIENT VISIT, [facility], [address], [place], [place], [address], [place] tel:[phone] [facility] abdominal pain1 (chief complaint)kn ee pain1 (chief complaint) Chronic pain syndromeAbdominal pain 8 Everton Belle. [address], [place], [place], [address] , [place]. tel:[phone] Referring Provider: Yoshi Toscano [address], [place], [place], [address]. tel:[phone] OFFICE/OUTPA TIENT VISIT, [facility], [address], [place], [place], [address], [place] tel:[phone] [facility] chronic pain1 (chief complaint)ab d pain1 (chief complaint) Pain in left kneeAbdominal pain 8 Everton Belle. [address], [place], [place], [address] , [place]. tel:[phone] Referring Provider: Yoshi Toscano [address], [place], [place], [address]. tel:[phone] OFFICE/OUTPA TIENT VISIT, [facility], [address], [place], [place], [address], [place] tel:[phone] [facility] knee pian1 (chief complaint) Chronic pain syndrome 8 Everton Belle. [address], [place], [place], [address] , [place]. tel:[phone] Referring Provider: Sheldon Mor[address], [place], [place], [address]. tel:[phone] OFFICE/OUTPA TIENT VISIT, [facility], [address], [place], [place], [address], [place] tel:[phone] [facility] anxiety1 (chief complaint)lF T (chief complaint)WB C (chief complaint)kn ee pain1 (chief complaint) Generalized Anxiety DisorderLiver diseaseOther partial intestinal obstructionRheuma toid arthritis 7 Everton Belle. [address], [place], [place], [address] , [place]. tel:[phone] OFFICE/OUTPA TIENT VISIT, [facility], [address], [place], [place], [address], [place] tel:[phone] [facility] small bowel (chief complaint)LF T (chief complaint)kn ee pain1 (chief complaint)an xity1 (chief complaint) Other partial intestinal obstructionGenera lized Anxiety DisorderLiver diseaseChronic pain syndrome 7 Everton Belle. [address], [place], [place], [address] , [place]. tel:[phone] Referring Provider: Sheldon Morales [address], [place], [place], [address]. tel:[phone] OFFICE/OUTPA TIENT VISIT, [facility], [address], [place], [place], [address], [place] tel:[phone] [facility] chronic pain (chief complaint) Pain in left kneePain in left hip Apr-1 0-201 7 Everton Belle. [address], [place], [place], [address] , [place]. [phone] PREV VISIT, EST, AGE 40-64 [facility], [address], [place], [place], [address], [place] tel:[phone] [facility] physical (chief complaint) Encounter for general adult medical exam w abnormal findingsPain in left hipRheumatoid arthritisVitamin D deficiency, unspecified Sep-0 8-201 7 Everton Belle. [address], [place], [place], [address] , [place]. [phone] Referring Provider: Sheldon Morales [address], [place], [place], [address]. tel:[phone] OFFICE/OUTPA TIENT VISIT, [facility], [address], [place], [place], [address], [place] tel:[phone] [facility] knee pain1 (chief complaint)RA (chief complaint) Rheumatoid arthritisPain in left knee Jeremie- 2-201 7 Everton Belle. [address], [place], [place], [address] , [place]. [phone] Referring Provider: Sheldon Morales [address], [place], [place], [address]. tel:[phone] OFFICE/OUTPA TIENT VISIT, [facility], [address], [place], [place], [address], [place] tel:[phone] [facility] chronic pain (chief complaint)ab d pain (chief complaint) Pain in kneeAbdominal pain Sep-0 6-201 7 Everton Belle. [address], [place], [place], [address] , [place]. [phone] Referring Provider: Sheldon Morales [address], [place], [place], [address]. tel:[phone] OFFICE/OUTPA TIENT VISIT, [facility], [address], [place], [place], [address], [place] tel:[phone] [facility] knee pain1 (chief complaint)ab d pain1 (chief complaint) GastroparesisPain in left knee 7 Everton Belle. [address], [place], [place], [address] , [place]. tel:[phone] Referring Provider: Sheldon Morales [address], [place], [place], [address]. tel:[phone] OFFICE/OUTPA TIENT VISIT, [facility], [address], [place], [place], [address], [place] tel:[phone] [facility] GERD1 (chief complaint)kn ee pain1 (chief complaint) GERD w/ esophagitisPain in left knee 7 Everton Belle. [address], [place], [place], [address] , [place]. tel:[phone] Referring Provider: Sheldon Morales [address], [place], [place], [address]. tel:[phone] OFFICE/OUTPA TIENT VISIT, [facility], [address], [place], [place], [address], [place] tel:[phone] [facility] knee pain1 (chief complaint)GE RD1 (chief complaint)ab d pain1 (chief complaint) Pain in left kneeGERD w/ esophagitisDiseas e of gallbladder, unspecified 6 Everton Belle. [address], [place], [place], [address] , [place]. [phone] Referring Provider: Sheldon Morales [address], [place], [place], [address]. tel:[phone] OFFICE/OUTPA TIENT VISIT, [facility], [address], [place], [address], [place] tel:[phone] [facility] abd pain1 (chief complaint)pr oteinuria1 (chief complaint)kn ee pain1 (chief complaint)ly mph1 (chief complaint) ProteinuriaPain in left kneeLymphadenopat hyDisease of gallbladder, unspecified 0 6 Everton Belle. [address], [place], [address] , [place]. [phone] Referring Provider: Sheldon Mor[address], [place], [place], [address]. tel:[phone] OFFICE/OUTPA TIENT VISIT, EST [facility], [address], [place], [address], [place] [phone] [facility] HLP (chief complaint)pr oteinruia1 (chief complaint)kn ee leobardo (chief complaint)dy sphagia1 (chief complaint) DysphagiaPain in left kneeProteinuriaDi sease of gallbladder, unspecified 6 Everton Florian [address], [place], [place], [address] , [place]. [phone] Referring Provider: Sheldon Morales [address], [place], [place], [address]. tel:[phone] OFFICE/OUTPA TIENT VISIT, EST [facility], [address], [place], [place], [address], [place] tel:[phone] [facility] knee pain (chief complaint)kn ee pain1 (chief complaint)dy sphagia1 (chief complaint)ne ck pain1 (chief complaint) DysphagiaPain in left kneeAbdominal pain Sep-0 6 Everton Florian [address], [place], [place], [address] , [place]. [phone] Referring Provider: Sheldon Morales [address], [place], [place], [address]. tel:[phone] PREV VISIT, EST, AGE 40-64 [facility], [address], [place], [place], [address], [place] tel:[phone] [facility] PHysical (chief complaint) Encounter for general adult medical exam w abnormal findingsLymphaden opathyRheumatoid arthritisChronic pain syndrome 6 Everton Belle. [address], [place], [place], [address] , [place]. tel:[phone] Referring Provider: Yoshi Toscano, [address], [place], [place], [address]. tel:[phone] OFFICE/OUTPA TIENT VISIT, [facility], [address], [place], [place], [address], [place] [phone] [facility] knee pain1 (chief complaint) Pain in left knee 6 Everton Belle. [address], [place], [place], [address] , [place]. tel:[phone] Referring Provider: Yoshi Toscano, She[address], [place], [place], [address]. tel:[phone] OFFICE/OUTPA TIENT VISIT, [facility], [address], [place], [place], [address], [place] tel:[phone] [facility] joint pain1 (chief complaint)RA (chief complaint) Pain in left kneeRheumatoid arthritis, unspecified 6 Everton Belle. [address], [place], [place], [address] , [place]. [phone] Referring Provider: Sheldon Morales [address], [place], [place], [address]. tel:[phone] OFFICE/OUTPA TIENT VISIT, [facility], [address], [place], [place], [address], [place] [phone] [facility] KNee pain1 (chief complaint) Pain in left kneeRheumatoid arthritis, unspecified 5 Everton Belle. [address], [place], [place], [address] , [place]. tel:[phone] Referring Provider: Sheldon Morales [address], [place], [place], [address]. tel:[phone] OFFICE/OUTPA TIENT VISIT, [facility], [address], [place], [place], [address], [place] tel:[phone] [facility] klnee pain (chief complaint) Pain in joint involving lower legRheumatoid arthritis 5 Everton Belle. [address], [place], [place], [address] , [place]. tel:[phone] Referring Provider: Yoshi Toscano [address], [place], [place], [address]. tel:[phone] OFFICE/OUTPA TIENT VISIT, [facility], [address], [place], [place], [address], [place] tel:[phone] [facility] knee pain (chief complaint) Pain in joint involving lower legOpioid type dependence, unspecified use 5 Everton Belle. [address], [place], [place], [address] , [place]. tel:[phone] Referring Provider: Yoshi Toscano [address], [place], [place], [address]. tel:[phone] OFFICE/OUTPA TIENT VISIT, [facility], [address], [place], [place], [address], [place] tel:[phone] [facility] chronic pain (chief complaint) Pain in joint involving lower legRheumatoid Arthritis 5 Everton Belle. [address], [place], [place], [address] , [place]. tel:[phone] Referring Provider: Yoshi Toscano [address], [place], [place], [address]. tel:[phone] OFFICE/OUTPA TIENT VISIT, [facility], [address], [place], [place], [address], [place] tel:[phone] [facility] chronic pain (chief complaint) Rheumatoid ArthritisCHRONIC PAIN NEC 4 Everton Belle. [address], [place], [place], [address] , [place]. tel:[phone] Referring Provider: Sheldon Morales [address], [place], [place], [address]. tel:[phone] OFFICE/OUTPA TIENT VISIT, [facility], [address], [place], [place], [address], [place] tel:[phone] [facility] knee pain (chief complaint) Pain in joint involving lower leg Oct-0 8-201 4 Everton Belle. [address], [place], [place], [address] , [place]. [phone] Referring Provider: Sheldon Morales [address], [place], [place], [address]. tel:[phone] OFFICE/OUTPA TIENT VISIT, [facility], [address], [place], [place], [address], [place] tel:[phone] [facility] knee pain (chief complaint) Pain in joint involving lower legRheumatoid Arthritis Sep-1 5201 4 Everton Belle. [address], [place], [place], [address] , [place]. tel:[phone] Referring Provider: Sheldon Morales [address], [place], [place], [address]. tel:[phone] OFFICE/OUTPA TIENT VISIT, [facility], [address], [place], [address], [place] tel:[phone] [facility] knee pain (chief complaint) Pain in joint involving lower legRheumatoid Arthritis Jeremie-2 0201 4 Everton Belle. [address], [place], [place], [address] , [place]. tel:[phone] Referring Provider: Yoshi Toscano [address], [place], [place], [address]. tel:[phone] OFFICE/OUTPA TIENT VISIT, [facility], [address], [place], [place], [id number], [place] tel:[phone] [facility] knee pain (chief complaint) Dietary surveillance and counselingPain in joint involving lower legRheumatoid Arthritis Sep- 4 Everton Belle. [address], [address], [place], [place], [id number] , [place]. [phone] Referring Provider: Yoshi Toscano, [address], [place], [place], [id number]. tel:[phone] OFFICE/OUTPA TIENT VISIT, [facility], [address], [place], [place], [id number], [place] tel:[phone] [facility] knee pain (chief complaint) Pain in joint involving lower leg 3 Everton Belle. [address], [address], [place], [place], [id number] , [place]. [phone] Referring Provider: Yoshi Toscano, [address], [place], [place], [id number]. tel:[phone] OFFICE/OUTPA TIENT VISIT, [facility], [address], [place], [place], [id number], [place] tel:[phone] [facility] Knee pain (chief complaint) Pain in joint involving lower leg 0 3 Everton Belle. [address], [place], [place], [address] , [place]. [phone] Referring Provider: Sheldon Morales [address], [place], [place], [id number]. tel:[phone] OFFICE/OUTPA TIENT VISIT, [facility], [address], [place], [place], [id number], [place] tel:[phone] [facility] knee pain (chief complaint) Pain in joint involving lower leg 2 Everton Belle. [address], [place], [place], [address] , [place]. [phone] Family History Family Member Type Diagnosis Age At Onset Brother Problem (finding) Alive and well Mother Problem (finding) Diabetes mellitus Father Problem (finding) Alive and well Payers Payer name Insurance type Covered democrat ID Makayla khan(s) [facility] [id number] Social History Type Description Quantity Date Captured Comments Alcohol Use Details No Caffeine Use Details Unknown Tobacco Use Status Ex-cigarette smoker 025 Smoking Status Former smoker Sex Male Vital Signs Date / Time: Height Weight BMI Pulse Rate Blood Pressure Temperature Respiratory Rate Body Surface Area Head Circumference BMI percentile Pulse Ox Inhaled Ox 2:38 PM 66.00 in 137.00 lbs 22.1 1 kg/m eter (2) 70 /min 110/70 mm[Hg] 98.2 F 16 /min Chief Complaint And Reason For Visit From encounter dated '10/21/2024 14:33'. pain (chief complaint). Description: Pt has RA and diffuse joint pain. Pt is on Plaquenil. He sees rheumatology. Pt takes norco PRN for pain and doing ok. Pt denies any worsening pain. Pt needs norcorefilled. Plan Of Treatment Date Type Action Status Goal Tobacco cessation counseling completed Goal Tobacco cessation counseling completed Goal Tobacco cessation counseling completed Goal Tobacco cessation counseling completed Goal Tobacco cessation counseling completed Goal Tobacco cessation counseling completed Goal Tobacco cessation counseling completed Goal Tobacco cessation counseling completed Goal Tobacco cessation counseling completed Goal Tobacco cessation counseling completed Goal Tobacco cessation counseling completed Goal Tobacco cessation counseling completed Goal Tobacco cessation counseling completed Goal Tobacco cessation counseling completed Goal Tobacco cessation counseling completed Goal Tobacco cessation counseling completed Goal Tobacco cessation counseling completed Goal Tobacco cessation counseling completed Goal Tobacco cessation counseling completed Goal Tobacco cessation counseling completed Goal Tobacco cessation counseling completed Goal Tobacco cessation counseling completed Referral Ordered: CT THORAX W/O DYE ordered Referral Ordered: Ruano, Iron -[facility]opathic Physicians : Internal Medicine : Gastroenterology (related to Chronic pancreatitis NOS) ordered Referral Referred To: Iron Ruano [address]
[place] [address] [place], [place], [phone] Ordered: Referrals: Allopathic & Osteopathic Physicians : Internal Medicine : Gastroenterology. Iron Ruano. Evaluate and treat ordered Referral Ordered: SLEEP STUDY, ATTENDED ordered Referral Ordered: US CAROTID ordered Referral Ordered: CT ANGIOGRAPHY, NECK ordered Referral Ordered: CT ANGIOGRAPHY, HEAD ordered Referral Ordered: MRI BRAIN W/O & W/DYE ordered Referral Referred To: Tim Kincaid MD [address] [place], [place], [id number] Ordered: Referrals: Tim Kincaid MD Evaluate and treat ordered Referral Ordered: LUMBAR XRAY AP AND LAT ONLY ordered Referral Ordered: Pulmonology (related to Shortness of breath) ordered Referral Ordered: Referrals: Pulmonology. Evaluate and treat ordered Referral Ordered: Cardiology (related to Varicose veins of right lower extremity with pain) ordered Referral Ordered: Referrals: Cardiology. Evaluate and treat ordered Referral Ordered: US EXAM OF ABDOMEN, LIMITED, GALLBLADDER ordered Referral Ordered: Gastroenterology (related to Other partial intestinal obstruction) ordered Referral Ordered: Referrals: Gastroenterology. Evaluate and treat ordered Referral Ordered: Enrico Casiano (related to Pain in left hip) ordered Referral Referred To: Enrico Casiano 4 [facility] [address] [place], [phone] Ordered: Referrals: Enrico Casiano. Evaluate and treat ordered Referral Ordered: HIP XRAY AP/LAT Left ordered Referral Ordered: UPPER GI W/ KUB ordered Referral Ordered: Miki Alanis (related to Pain in left knee) ordered Referral Referred To: Miki Alanis [address] [place], [phone] Ordered: Referrals: Miki Alanis. Evaluate and treat ordered Referral Ordered: MRI LOWER EXTREMITY W/O DYE Left knee ordered Referral Ordered: NUC MED HIDA (HEPATOBILIARY) SCAN ordered Referral Ordered: Otolaryngology (related to Dysphagia) ordered Referral Ordered: US EXAM, ABDOM, COMPLETE ordered Referral Ordered: UPPER GI ENDOSCOPY, BIOPSY ordered Referral Ordered: Referrals: Otolaryngology. Evaluate and treat ordered Referral Ordered: CT SOFT TISSUE NECK W/DYE ordered Appointment Ahsan Esqueda BOOKED History Of Present Illness Encounter Date Complaint History Of Prese nt Illness pain Pt has RA and di ffuse joint pain. Pt is on Plaquenil. He sees rheumatology. Pt takes norco PRN for pain and doing ok. Pt denies any worsening pain. Pt needs norco refilled. pain Pt has RA and di ffuse joint pain. Pt is on Plaquenil. He sees rheumatology. Pt takes norco PRN for pain and doing ok. Pt denies any worsening pain. Pt needs norco refilled. Pt just saw rheumatology recently and he will continue plaquenil. tension Pt states that t ension headache improved with lidocaine patch tobacco1 Pt has 35 pack y ear tobacco Pt denies any hemoptysis, cough Pt denies any recurrent sob. Pt needs LDCT pain Pt has RA and di ffuse joint pain. Pt is on Plaquenil. He sees rheumatology. Pt takes norco PRN for pain and doing ok. Pt denies any worsening pain. Pt needs norco refilled. Pt just saw rheumatology recently and he will continue plaquenil. headache1 Pt has intermitt ent tension type of headache for several months Pt denies any head injury or waking up at night with headache Pt denies any rey neck pain Pt denies any nausea, vomiting photophobia. Pt c/o throbbing and tension type of pain. headache1 Pt c/o occasiona l tension type of headache from upper back to posterior scalp area for several weeks Pt denies any head injury or waking up at night with headache Pt denies any nausea, vomiting pain Pt has RA and di ffuse joint pain. Pt is on Plaquenil. He sees rheumatology. Pt takes norco PRN for pain and doing ok. Pt denies any worsening pain. Pt needs norco refilled. Pt just saw rheumatology recently and he will continue plaquenil. pain Pt has RA and di ffuse joint pain. Pt is on Plaquenil. He sees rheumatology. Pt takes norco PRN for pain and doing ok. Pt denies any worsening pain. Pt needs norco refilled. Pt just saw rheumatology recently and he will continue plaquenil. COPD1 Pt has mild COPD Pt is off daily inhaler Pt only needs to use albuterol 1-2 per week or less. glucose1 Pt has mildly hi gh glucose Pt denies any polyuria,, polydipsia. HLP Pt has mildly hi gh TG Pt has not been diet. Pt has been consuming more carbs RA Pt has RA and di ffuse joint pain. Pt is on Plaquenil. He sees rheumatology. Pt takes norco PRN for pain and doing ok. Pt denies any worsening pain. Pt needs norco refilled. Pt just saw rheumatology recently and he will continue plaquenil. physical Pt needs annual physical pt has COPD Pt has not been using spiriva for a while Pt has not had the need to use albuterol for a while Pt has RA and he sees lead technician and he is on plaquenil and doing ok Pt has chronic joint pain due to RAH pt is on norco PRN for pain Pt denies any new complaints pain Pt has RA and di ffuse joint pain. Pt is on Plaquenil. He sees rheumatology. Pt takes norco PRN for pain and doing ok. Pt denies any worsening pain. Pt needs norco refilled. Pt just saw rheumatology recently and he will continue plaquenil. pain Pt has RA and di ffuse joint pain. Pt is on Plaquenil. He sees rheumatology. Pt takes norco PRN for pain and doing ok. Pt denies any worsening pain. Pt needs norco refilled. pain Pt has RA and di ffuse joint pain. Pt is on Plaquenil. He sees rheumatology. Pt takes norco PRN for pain and doing ok. Pt denies any worsening pain. Pt needs norco refilled. RA Pt has RA and di ffuse joint pain. Pt is on Plaquenil. He sees rheumatology. Pt takes norco PRN for pain and doing ok. Pt denies any worsening pain. Pt needs norco refilled. RA Pt has RA and di ffuse joint pain. Pt is on Plaquenil. He sees rheumatology. Pt takes norco PRN for pain and doing ok. Pt denies any worsening pain. Pt needs norco refilled. pain Pt has RA and di ffuse joint pain. Pt is on Plaquenil. He sees rheumatology. Pt takes norco PRN for pain and doing ok. Pt denies any worsening pain. Pt needs norco refilled. pain Pt has RA and di ffuse joint pain. Pt is on Plaquenil. He sees rheumatology. Pt takes norco PRN for pain and doing ok. Pt denies any worsening pain. Pt needs norco refilled. tobacco1 Pt has 35 pack y ear tobacco history Pt quit smoking 5 years ago pain Pt has RA and di ffuse joint pain. Pt is on Plaquenil. He sees rheumatology. Pt takes norco PRN for pain and doing ok. Pt denies any worsening pain. Pt needs norco refilled. COPD1 Pt has COPD due to smoking history . Pt is noncompliant with spiriva he uses albuterol 2-3 per week, especially with exertion Pt denies any hemoptysis or cough pain Pt has RA and di ffuse joint pain. Pt is on Plaquenil. He sees rheumatology. Pt takes norco PRN for pain and doing ok. Pt denies any worsening pain. Pt needs norco refilled. gallbladder1 Pt has gallbladd er polyp. Pt denies any abd pain Pt wants to know if he needs to repeat gallbladder ultrasound pain Pt has RA and di ffuse joint pain. Pt is on Plaquenil. He sees rheumatology. Pt takes norco PRN for pain and doing ok. Pt denies any worsening pain. Pt needs norco refilled. pain Pt has RA and di ffuse joint pain. Pt is on Plaquenil. He sees rheumatology. Pt takes norco PRN for pain and doing ok. Pt denies any worsening pain. Pt needs norco refilled. pain Pt has RA and di ffuse joint pain. Pt is on Plaquenil. He sees rheumatology. Pt takes norco PRN for pain and doing ok. Pt denies any worsening pain. Pt needs norco refilled. pain Pt has RA and di ffuse joint pain. Pt is on Plaquenil. He sees rheumatology. Pt takes norco PRN for pain and doing ok. Pt denies any worsening pain. Pt needs norco refilled. COPD1 Pt has emphysema . Pt uses spiriva and he uses albuterol PRn. He does not use spiriva on regular basis. Pt needs to use albuterol 1-2 per week pain Pt has RA and di ffuse joint pain. Pt is on Plaquenil. He sees rheumatology. Pt takes norco PRN for pain and doing ok. Pt denies any worsening pain. Pt needs norco refilled. pain Pt has RA and di ffuse joint pain. Pt is on Plaquenil. He sees rheumatology. Pt takes norco PRN for pain and doing ok. Pt denies any worsening pain. Pt needs norco refilled. pain Pt has RA and di ffuse joint pain. Pt is on Plaquenil. He sees rheumatology. Pt takes norco PRN for pain and doing ok. Pt denies any worsening pain. Pt needs norco refilled. physical Pt needs annual physical. Pt has RA with joint pain Pt takes norco PRN for pain as well as plaquenil. Pt is seeing rheumatology now. .Pt has COPD and he uses spiriva and albuterol PRN and doing ok Pt denies any hemoptysis worsening sob or cough. Pt denies any other complaints pain Pt has RA and di ffuse joint pain. Pt is on Plaquenil. He sees rheumatology. Pt takes norco PRN for pain and doing ok. Pt denies any worsening pain. Pt needs norco refilled. gallbladder1 Pt has gallbladd er polyp Pt denies any abd pain Pt denies any GERD Pt had gallbladder ultrasound done last month by Gi and was told polyp stable pain Pt has RA and di ffuse joint pain. Pt is on Plaquenil. He sees rheumatology. Pt takes norco PRN for pain and doing ok. Pt denies any worsening pain. Pt needs norco refilled. gallbladder Pt has gallbladd er polyp Pt denies any abd pain Pt denies any GERD Pt sees GI for monitoring pain Pt has RA and di ffuse joint pain. Pt is on Plaquenil. He sees rheumatology. Pt takes norco PRN for pain and doing ok. Pt denies any worsening pain. Pt needs norco refilled. pain Pt has RA and di ffuse joint pain. Pt is on Plaquenil. He sees rheumatology. Pt takes norco PRN for pain and doing ok. Pt denies any worsening pain. Pt needs norco refilled. COPD1 Pt has copd. Pt uses spiriva and albuterol PRN ,Pt uses albuterol 2-3 per week Pt denies any hemoptysis, worsening sob or cough pain Pt has RA and di ffuse joint pain. Pt is on Plaquenil. He sees rheumatology. Pt takes norco PRN for pain and doing ok. Pt denies any worsening pain. Pt needs norco refilled. tobacco1 Pt quit smoking 5 years ago. Pt denies any hemoptysis, worsening sob or cough .Pt is using inhalers Pt had negative LDCT fatigue1 Pt no longe feel s fatigue Pt medeiros snot want in lab sleep study. his iron and ferritin and CBC are ok HLP Pt has mild high TG. Pt is working on diet pain Pt has RA and di ffuse joint pain. Pt is on Plaquenil. He sees rheumatology. Pt takes norco PRN for pain and doing ok. Pt denies any worsening pain. Pt needs norco refilled. fatigue1 Pt has chronic f atigue Pt denies any dizziness. Pt has ? sleep apnea but he is noncompliant with in lab sleep study COPD Pt has COPD .Pt takes spiriva and he needs to use albuterol 2-3 per week. . Pt denies any hemoptysis. Pt has not done LDCT yet pain Pt has RA and di ffuse joint pain. Pt is on Plaquenil. He sees rheumatology. Pt takes norco PRN for pain and doing ok. Pt denies any worsening pain. Pt needs norco refilled. pain Pt has RA and di ffuse joint pain. Pt is on Plaquenil. He sees rheumatology. Pt takes norco PRN for pain and doing ok. Pt denies any worsening pain. Pt needs norco refilled. Pt denies any worsening pain pain Pt has RA and di ffuse joint pain. Pt is on Plaquenil. He sees rheumatology. Pt takes norco PRN for pain and doing ok. Pt denies any worsening pain. Pt needs norco refilled. Pt denies any worsening leobardo tobacco1 pt needs LDCT fo r lung CA screening. Pt does have COPD Pt uses spiriva and albuterol PRn Pt denies any hemoptysis pain Pt has RA and di ffuse joint pain. Pt is on Plaquenil. He sees rheumatology. Pt takes norco PRN for pain and doing ok. Pt denies any worsening pain pancreatitis Pt has autoimmun e pancreatitis and gallbladder polyp PT sees GI at [facility]., pt will do repeat ultrasound soon per GI per patient. Pt denies any abd pain Pt does not drink alcohol emphysema1 Pt has COPD. Pt takes spiriva and albuterol PRN. Pt states that he uses albuterol 2-3 per week. Pt denies any hemoptysis, worsening sob or cough pain Pt has RA and di ffuse joint pain Pt is seeing rheumatology. Pt it on plaquenil. Pt saw rheumatology recently and was told that his RA is in remission. Pt needs norco refilled pain1 Pt has RA and di ffuse joint pain Pt is seeing rheumatology. Pt it on plaquenil. Pt saw rheumatology recently and was told that his RA is in remission. gallbladder polyp1 Pt has gallbl adder polyp and autoimmune pancreatitis. Pt is seeing GI. he had MRI of abdomen done recently. He was told gallbladder polyp stable, PT denies any abdominal pain sleep apnea1 Pt has ? sleep a pnea. Pt is extremely noncompliant with in lab sleep study. He does snore and feels fatigue physical Pt needs annual physical. Pt has RA with joint pain Pt takes norco PRN for pain as well as plaquenil. Pt is seeing rheumatology now. Pt also has pancreatitis. Pt is seeing GI and she will do MRCP soon. Pt also has gallbladder polyp and his GI will do gallbladder ultrasound soon for monitoring .Pt has COPD and he uses spiriva and albuterol PRN. Pt also is noncompliant with in lab sleep study. Pt denies any fatigue .Pt denies any other complaints pain Pt has RA and ch ronic joint pain. Pt sees rheumatology Pt is on plaquenil. Pt takes norco PRN for pain. Pt denies any worsening pain. Pt denies any joint swelling. sleep apnea1 Pt has chronic f atigue and snoring Pt had inconclusive home study. Pt is extremely noncompliant with in lab study COPD1 Pt has COPD due to smoking. pt denies any hemoptysis, worsening sob or cough. Pt is noncompliant with Spiriva. He does not use it daily. Pt has been using albuterol 2-3 per week and sometime more. Pt denies any acute sob pancreatitis1 Pt was admitted to hospital recently for acute pancreatitis. pt does not drink alcohol and he had negative gallstone and bile duct dilation on CT scan. 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 His lipase was normalized upon discharge per patient. Pt denies any abd pain or any nausea, vomiting, diarrhea. Pt also does not drink alcohol. Pt denies any abdominal pain. Pt c/o intermittent constipation and diarrhea. Pt also does not have any colonoscopy evidence for crohn disease. Pt states that he has not heard from [facility] GI yet. Pt denies any abd pain or nausea or vomiting. Pt has kimmie with GI in 2 weeks RA Pt has RA with j oint pain. Pt takes plaquenil and norco PRN for pain Pt sees rheumatology COPD1 Pt has COPD. Pt is noncompliant with Spiriva. Pt uses spiriva sometimes. Pt denies any worsening sob Pt still feels sob frequently Pt denies any hemoptysis sleep apnea1 Pt has ? sleep a pnea. Pt c/o fatigue Pt still has not done in lab study yet. Pt has in lab sleep study set up in one week pancreatitis1 Pt had ? autoimm une pancreatitis Pt denies any recurrent abdominal pain or any nausea, vomiting pt has not made kimmie with GI yet RA Pt has RA with j oint pain. Pt takes plaquenil and norco PRN for pain Pt sees rheumatology pancreatitis1 Pt was admitted to hospital recently for acute pancreatitis. pt does not drink alcohol and he had negative gallstone and bile duct dilation on CT scan. 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 His lipase was normalized upon discharge per patient. Pt denies any abd pain or any nausea, vomiting, diarrhea. Pt also does not drink alcohol. Pt denies any abdominal pain. Pt c/o intermittent constipation and diarrhea. Pt also does not have any colonoscopy evidence for crohn disease. Pt states that he has not heard from [facility] GI yet. Pt denies any abd pain or nausea or vomiting sleep apnea1 Pt has ? sleep a pnea. Pt c/o fatigue Pt still has not done in lab study yet. pain1 Pt has RA with m ultiple joint pain. Patient is on Plaquenil. PT sees rheumatology. Pt denies any joint redness or warmth or swelling ,Pt takes norco PRn for pain and doing ok Pt denies any worsening pain. Pt needs norco refill COPD1 Pt uses spiriva daily and he rarely needs to use albuterol. Pt denies any cough, worsening sob or hemoptysis leobardo Pt has RA with m ultiple joint pain. Patient is on Plaquenil. PT sees rheumatology. Pt denies any joint redness or warmth or swelling ,Pt takes norco PRn for pain and doing ok Pt denies any worsening pain. Pt needs norco refill pancreatitis1 Pt was admitted to hospital recently for acute pancreatitis. pt does not drink alcohol and he had negative gallstone and bile duct dilation on CT scan. 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 His lipase was normalized upon discharge per patient. Pt denies any abd pain or any nausea, vomiting, diarrhea. Pt also does not drink alcohol. Pt denies any abdominal pain. Pt c/o intermittent constipation and diarrhea weight loss1 Pt actually gain ed some weight since his last visit. Pt denies any appetite loss, nausea, vomiting, early satiety, etc ,Pt had benign EGD 2016 and he had benign colonoscopy 2018. There is some question regarding whether he has crohn disease, which I am not aware of. His last colonoscopy 2018 which did not show any signs of crohn disease. He has been seeing GI doctor at [facility] who left the practice recently. pain Pt has RA with m ultiple joint pain. Patient is on Plaquenil. PT sees rheumatology. Pt denies any joint redness or warmth or swelling ,Pt takes norco PRn for pain and doing ok Pt denies any worsening pain. Pt needs norco refill pancreatitis1 Pt was admitted to hospital recently for acute pancreatitis. pt does not drink alcohol and he had negative gallstone and bile duct dilation on CT scan. 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 His lipase was normalized upon discharge per patient. Pt denies any abd pain or any nausea, vomiting, diarrhea. Pt also does not drink alcohol weight loss1 Pt has been losi ng weight Pt denies any abd pain .Pt sees GI and he is not sure if he has crohn disease, although the discharge summary indicated that he has crohn disease. Pt told me he had EGD and colonoscopy last year but I do not have any results. Pt thinks that he lost weight due to acute pancreatitis. Pt currently denies any nausea, vomiting, diarrhea, blood in stool pain Pt has RA with m ultiple joint pain. Patient is on Plaquenil. PT sees rheumatology. Pt denies any joint redness or warmth or swelling ,Pt takes norco PRn for pain and doing ok Pt denies any worsening pain. sleep apnea1 His in lab sleep study was postponed to next month. he still feels fatigue COPD Pt has COPD Pt i s using Spiriva daily and he has been using albuterol 2-3 per week only pT denies any hemoptysis, worsening sob or any cough pain Pt has RA with m ultiple joint pain. Patient is on Plaquenil. PT sees rheumatology. Pt denies any joint redness or warmth or swelling ,Pt takes norco PRn for pain and doing ok Pt denies any worsening pain. sleep apnea1 Pt has fatigue a nd snoring. Pt had home sleep study which showed sleep apnea. the sleep specialist recommended in lab study, which is set up for next week sleep apnea1 Pt has fatigue a nd snoring. Pt had home sleep study which showed sleep apnea. the sleep specialist recommended in lab study. Pt has not contacted sleep center yet about in lab study pain Pt has RA with m ultiple joint pain. Patient is on Plaquenil. PT sees rheumatology. Pt denies any joint redness or warmth or swelling ,Pt takes norco PRn for pain and doing ok Pt denies any worsening pain. pain Pt has RA with m ultiple joint pain. Patient is on Plaquenil. PT sees rheumatology. Pt denies any joint redness or warmth or swelling ,Pt takes norco PRn for pain and doing ok Pt denies any worsening pain. COPD Pt has COPD Pt i s noncompliant with spiriva. Pt stopped Spiriva on his own for unknown reason. Pt does feels sob frequently Pt denies any cough .Pt needs albuterol refilled. fatigue1 Pt has home slee p study scheduled for next week pain Pt has RA with m ultiple joint pain. Patient is on Plaquenil. PT sees rheumatology. Pt denies any joint redness or warmth or swelling ,Pt takes norco PRn for pain and doing ok Pt denies any worsening pain. Pt also has low back pain with bilateral sciatica and leg numbness. Pt is seeing ortho-spine now. He had MRi done which showed DDD with foraminal stenosis. Pt denies any loss of bladder control. Pt states that neurontin did not help his back pain and neuropathy. pt stopped taking it. Pt is on plaquenil from rheumatology pain Pt has chronic f atigue. Pt snores and he sometimes stop breathing at night. Pt needs sleep study pain Pt has RA with m ultiple joint pain. Patient is on Plaquenil. PT sees rheumatology. Pt denies any joint redness or warmth or swelling ,Pt takes norco PRn for pain and doing ok Pt denies any worsening pain. Pt also has low back pain with bilateral sciatica and leg numbness. Pt is seeing ortho-spine now. He had MRi done which showed DDD with foraminal stenosis. Pt denies any loss of bladder control. Pt states that neurontin did not help his back pain and neuropathy. pt stopped taking it. Pt is on plaquenil from rheumatology fatigue1 Pt c/o fatigue i n the morning and also throughout the day for long time .. Pt denies any sob. Pt does snore at night. Pt wakes up frequently at night for unknown reasons .Pt denies any frequent urination at night Pt denies any urinary urgency or frequency. Pt denies any sob at night. Pt states that he is a light sleeper. pain Pt has RA with m ultiple joint pain. Patient is on Plaquenil. PT sees rheumatology. Pt denies any joint redness or warmth or swelling ,Pt takes norco PRn for pain and doing ok Pt denies any worsening pain. Pt also has low back pain with bilateral sciatica and leg numbness. Pt is seeing ortho-spine now. He had MRi done which showed DDD with foraminal stenosis. Pt denies any loss of bladder control. Pt states that neurontin did not help his back pain and neuropathy. pt stopped taking it pain Pt has RA with m ultiple joint pain. Patient is on Plaquenil. PT sees rheumatology. Pt denies any joint redness or warmth or swelling ,Pt takes norco PRn for pain and doing ok Pt denies any worsening pain. Pt also has low back pain with bilateral sciatica and leg numbness. Pt is seeing ortho-spine now. He had MRi done which showed DDD with foraminal stenosis. Pt denies any loss of bladder control. He told me Dr. holloway referred him to pain management for injections Pt states that he has not heard from the pain management yet. pain Pt has RA with m ultiple joint pain. Patient is on Plaquenil. PT sees rheumatology. Pt denies any joint redness or warmth or swelling ,Pt takes norco PRn for pain and doing ok Pt denies any worsening pain. Pt also has low back pain with left sciatica and left leg numbness. Pt is seeing ortho-spine now. He had MRi done which showed DDD with foraminal stenosis. Pt denies any loss of bladder control. pain Pt has RA with m ultiple joint pain. Patient is on Plaquenil. PT sees rheumatology. Pt denies any joint redness or warmth or swelling ,Pt takes norco PRn for pain and doing ok Pt denies any worsening pain. Pt also has low back pain with left sciatica and left leg numbness. Pt is seeing ortho-spine now. He had MRi done which showed DDD with foraminal stenosis. Pt denies any loss of bladder control. COPD1 Pt has COPD. Pt doing well with spiriva. Pt rarely uses albuterol now. pt denies any acute sob pt denies any hemoptysis pain Pt has RA with m ultiple joint pain. Patient is on Plaquenil. PT sees rheumatology. Pt denies any joint redness or warmth or swelling ,Pt takes norco PRn for pain and doing ok Pt denies any worsening pain Ra Pt has RA with m ultiple joint pain. Patient is on Plaquenil. PT sees rheumatology. Pt denies any joint redness or warmth or swelling ,Pt takes norco PRn for pain and doing ok Pt denies any worsening pain emphysema1 Pt states that s piriva is helping him with breathing. Pt notices less needs for albuterol. Pt denies any hemoptysis RA Pt has RA with m ultiple joint pain. Patient is on Plaquenil. PT sees rheumatology. Pt denies any joint redness or warmth or swelling physical Pt needs annual physical. Pt has chronic RA and multiple joint pain Pt takes norco PRn for pain. Pt takes Plaquenil and he sees rheumatology. Pt has knee, hip pain. pt has COPD Pt still has not picked up spiriva Pt not sure why. Pt feels sob and he uses albuterol 1-2 per week now. Pt denies any hemoptysis, worsening sob or cough. Pt wants to try spiriva. Pt denies any other complaints sick Pt c/o mild runn ing nose, sore throat for two days. Pt denies any loss of taste and smell. Pt denies any coughing or sob or cough. Pt denies any sick contact or any exposure to COVID-19. pain Pt has RA and he has joint pain and knee pain Pt denies any worsening pain pt is seeing rheumatology at [facility]. Pt failed NSIAD and ultram. Pt takes norco PRN for pain.. 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 Pt states that he forgot. pt has been using albuterol 1-2 per day. Pt denies any hemoptysis, cough floaters Pt states that e ye floaters resolved. Pt had benign CTA of head and neck. Pt denies any vision loss or any neurological deficit or any speech problem COPD1 Pt has COPD Pt s tates that incruse is not covered. Pt uses albuterol daily pt denies any acute sob PT denies any hemoptysis RA Pt has RA Pt is not on any medication Pt takes norco PRN for pain and doing ok gallbladder1 Pt has gallbladd er polyp pt denies any abd pain Pt had repeat gallbladder ultrasound which showed benign polyp and no further follow up necessary, pt denies any abd pain pain Pt has RA and he has joint pain and knee pain Pt denies any worsening pain pt is seeing rheumatology at [facility]. Pt failed NSIAD and ultram. Pt takes norco PRN for pain. vision1 Pt has flash of light on both eye but worse on left side for 4 months. Pt has not had any curtain coming down on left eye. Pt still sees some floaters. Pt denies any vision loss. CTA of brain ok. However the CTA of the neck was not done .Pt denies any speech issue pain Pt has RA and he has joint pain and knee pain Pt denies any worsening pain pt is seeing rheumatology at [facility]. Pt failed NSIAD and ultram. Pt takes norco PRN for pain. Pt is not on any medication now. Pt missed his kimmie with rheumatology due to COVID-19 eye Pt has flash of light on both eye but worse on left side for 3 months, Pt notices some curtain down to left eye on and off and last time was 2 months ago Pt denies any speech problem or any neurological weakness. Pt notices some frontal headache when he bends forward. 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 Pt denies any facial droop or any weakness. Pt denies any speech problem gallbladder polyp1 Pt has gallbl adder polyp pt denies any right upper quadrant pain. pt needs monitor of the polyp pain Pt has RA and he has joint pain and knee pain Pt denies any worsening pain pt is seeing rheumatology at [facility]. He wants to go back to his previous rheumatology at [facility] but his insurance is not taken by [facility]. Pt failed NSIAD and ultram. Pt takes norco PRN for pain and doing ok eye1 Pt has flash of light on both eye but worse on left side for two months, Pt notices some curtain down to left eye on and off and last time was 1.5 months ago Pt denies any speech problem or any neurological weakness. Pt notices some frontal headache when he bends forward. Pt just saw psychiatric nursing aide and he has narrow retina blood vessel and recommended vascular work up. pain1 Pt has RA and he has joint pain and knee pain Pt denies any worsening pain pt is seeing rheumatology at [facility]. He wants to go back to his previous rheumatology at [facility] but his insurance is not taken by [facility]. Pt failed NSIAD and ultram. Pt takes norco PRN for pain and doing ok dizziness1 Pt c/o intermitt ent dizziness, nauseous feeling, decrease left eye vision x 6 months. Pt denies any orthostasis ,Pt denies any chest pain, palpitation, Pt denies any sob. Pt denies any vertigo. Pt c/o above 1-2 per week without any trigger Pt states that he notices curtain coming down left eye yesterday and he had partially lost of upper left eye vision due to above. he went to sleep and woke up and the vision is ok Pt denies any speech problem or any weakness. pt notice some vague headache comes and goes during last 3 months ago Pt denies any head injury or waking up at night with headache .Pt stats that symptoms usually last for several mins. 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 He denies any weakness or sensory loss COPD1 Pt takes incruse . Pt uses ventolin PRN pain Pt has RA and he has joint pain and knee pain Pt denies any worsening pain pt is seeing rheumatology at [facility]. Pt failed NSIAD and ultram. Pt takes norco PRN for pain and doing ok. Pt is not on any medication for RA currently pain Pt has RA and he has joint pain and knee pain Pt denies any worsening pain pt is seeing rheumatology at [facility]. He wants to go back to his previous rheumatology at [facility] but his insurance is not taken by [facility]. Pt failed NSIAD and ultram. Pt takes norco PRN for pain and doing ok COPD1 Pt has COPD Pt u ses incruse .Pt uses albuterol 1-2 per week Pt denies any hemoptysis, worsening sob or cough chronic pain1 Pt has RA and he has joint pain and knee pain Pt denies any worsening pain pt is seeing rheumatology at [facility]. He wants to go back to his previous rheumatology at [facility] but his insurance is not taken by [facility]. Pt failed NSIAD and ultram. Pt takes norco PRN for pain and doing ok chronic pain1 Pt has RA and he has joint pain and knee pain Pt denies any worsening pain pt is seeing rheumatology at [facility] and he has kimmie with rheumatology next week, Pt states that his appointment was canceled by rheumatology recently. He wants to go back to his previous rheumatology at [facility] but his insurance is not taken by [facility]. gallbladder pt has stable ga llbladder polyp. Patient denies any abdominal pain. Patient denies any nausea vomiting. Patient just saw Dr. Kincaid regarding the gallbladder polyp and was told that it is has been stable and need to be followed up every year. No need for gallbladder surgery yet. RA Pt has RA and he has joint pain and knee pain Pt denies any worsening pain pt is seeing rheumatology at [facility] and he has kimmie with rheumatology next week, Pt states that his appointment was canceled by rheumatology recently. He wants to go back to his previous rheumatology at [facility] but his insurance is not taken by [facility]. gallbladder polyp Pt has gallbla dder polyp pt still has not seen surgery yet. Pt did have appointment but he did not show pt states that he keeps trying to call but he has not heard from surgery yet. Pt denies any abd pain COPD Pt has mild COPD Pt uses incruse daily. Pt uses albuterol 1-2 per week Pt denies any acute sob, pt denies any hemoptysis, worsening sob or cough PHysical Pt needs annual physical. pt has RA and chronic knee pain Pt has joint pain pt sees rheumatology from [facility]. Pt currently is not taking any medication for RA. Pt states that he is too busy with personal stuff to get treatment now. Pt takes norco PRN for pain, Pt failed NSAID and ultram. Pt has COPD Pt uses incruse and ventolin PRN and doing ok Pt takes ventolin 1-2 per week Pt denies any hemoptysis, worsening sob or cough. Pt denies any abd pain, nausea, vomiting Pt still has not made kimmie to see Dr. Kincaid yet bout the gallbladder polyp chronic pain1 Pt has chronic k nee and back pain pt denies any sciatica or any loss of bladder control PT has DDD on x ray pt takes norco PRN for pain and doing ok COPD1 Pt has mild COPD Pt doing ok with incruse and ventolin pt uses ventolin 1-2 per week Pt denies any hemoptysis, cough. PFT showed borderline obstructive defect. Pt denies any acute sob chronic pain Pt has chronic b ack and hip and knee pain Pt takes norco PRn for pain. pt has RA Pt is not on any medication for RA yet. Pt is seeing rheumatology, Pt has DDD on x rays pt denies any injury Pt denies any sciatica or any loss of bladder control sob1 Pt has sob. Pt n o longer smoking Pt denies any hemoptysis Pt states that incruse is helping his breathing Pt denies any hemoptysis. pt feels that he can use less albuterol now. Pt had PFT done but results not available yet gallbladder polyp Pt has gallbla dder polyps, which are stable in size Pt denies any abd pain. chronic pain1 Pt has chronic k nee pain Pt failed NSIAD and ultram pt takes norco PRN for pain and doing ok sob1 Pt denies any he moptysis, coughing or worsening sob. Pt uses albuterol 1-2 per day. Pt has not done PFT yet. pt denies any exertional sob ,Pt denies any chest pain gallbladder1 Pt has gallbladd er polyp Pt denies any abd pain GERd, nausea, vomiting Pt sees GI back 1 Pt has intermitt ent low back and bilateral hip pain for several years but worse lately, pt denies any injury pt denies any loss of bladder control. Pt denies any numbness or tingling of his legs. Pt states that the pain has been getting worse lately Pt denies any injury Pt has sharp pain, worse with activity Pt has 5/10 pain sob1 Pt feels sob dur ing the spring season Pt denies any hemoptysis, cough. Pt feels wheezing and sob once per week during allergy season. Pt denies any running nose, itching eyes or sneezing knee pain1 Pt has chronic l eft knee pain Pt denies ay active knee pain Pt denies any redness or warmth. Pt denies any injury RA1 Pt has RA and ? crohn disease pt is not on any meds now Pt is seeing rheumatology and also GI at [facility]. Pt will be started on enbrel soon. pt denies any active GI symptoms pain1 Pt has chronic l eft knee pain s/p left knee surgery. Pt denies any swelling or redness or warmth or worsening pain. RA1 Pt has RA. Pt lucia zeng saw rheumatology at [facility] Pt used to take humira but unable to tolerate it Pt is getting some lab done and may soon be start on Enbrel. Pt denies any flare up of joint pain venous1 Pt does have russ ous insufficiency. Pt does have varicose veins No DVT. Pt states that his right leg sometimes swells up Pt denies any calf pain chronic pain1 Pt has chronic k nee pain Pt failed NSAID> pt takes norco PRN for pain and doing ok. Pt denies any redness or warmth chronic pain1 Pt has chronic k nee pain Pt denies any worsening pain. Pt takes norco PRN for pain Pt failed NSAID and ultram liver1 Pt had liver CT done which showed benign hemangioma. Pt denies any abd pain liver lesion1 Pt has liver les ion and gallbladder polyp Pt is noncompliant about bring the CD to [facility] for comparison. Pt told me his GI ordered a detailed CT scan of his lung, abdomen and pelvis due to liver lesion. and gallbladder polyp knee pain1 Pt has chronic l eft knee pain Pt denies any worsening pain Pt failed NSAID and ultram leg lesion1 pt c/o slightly tender soft cystic lesion right anterior lower leg for several months Pt denies any redness or warmth. Pt denies any claudication pt notices several similar lesion spreading towards the proximal area of right anterior leg. Pt denies any numbness. Pt denies any calf pain Pt denies any recent travel or bedrest liver lesion1 Pt has liver les ion. Pt states that she has the CD from MRi of abdomen last year but he has not dropped off the CD at [facility] yet. pt denies any abdominal pain knee pain1 Pt has chronic l eft knee pain Pt denies any worsening pain, pt denies any swelling or redness or warmth. Pt has normal ROM gallbladder polyp1 Pt has gallbl adder polyp Pt had ultrasound done which showed small polyp. Pt denies any RUq pain with food or other time liver lesion Pt has liver les ion on recent liver ultrasound. Radiologist recommended MRi. however, pt had MRI 10 months ago which did show the liver lesion knee pain1 Pt has chronic l eft knee pain. Pt takes norco PRN for pain Pt failed NSAID and ultram. Pt denies any swelling or redness or warmth hemorrhoid1 Pt recently had hemorrhoid and rectal prolapse surgery Pt doing ok currently. Pt denies any rectal bleeding or leakage of stool, Pt has mild nausea and abdominal pain sometimes Pt tried PPI which made him feeling worse in the past Pt also tried amitriptyline in the past Pt denies any constipation or diarrhea Pt has normal BM. Pt has mild GERD Pt had benign EGD Physical Pt needs annual physical. pt has chronic left knee pain. Pt has history of left knee surgery. pt notices intermittent left knee swelling Pt takes norco PRN for pain pt denies any worsening pain. Pt recently had colonoscopy again and had ? hemorrhoid surgery vs rectal prolapse surgery. Pt is not sure. He denies any rectal pain or any GI bleeding now. Pt also has history of gallbladder polyp Pt states that GI did not really address the gallbladder polyp pt denies any abdominal pain now Pt denies any nausea, vomiting or weight loss knee pain1 Pt has chronic l eft knee pain. Pt has history of left knee surgery due to meniscus injury. Pt has intermittent left knee swelling with constant pain. pt denies any worsening pain RA Pt has rheumatoi d arthritis. Pt takes remicade. Pt sees lead technician at [facility]. Pt also has rectal pain due to large hemorrhoid. Pt is seeing rectal surgeon and will have surgical removal soon. Pt denies any rectal bleeding. knee pain1 Pt has chronic l eft knee pain. Pt takes norco PRN for pain. pt failed NSAID. and ultram abdominal pain1 Pt has chronic r ectal pain. Pt has constipation. pt denies any diarrhea. Pt denies any blood in stool. Pt had benign EGD and colonscopy and small capsule study. pt [facility] now chronic pain1 Pt has chronic l eft knee pain. Pt denies any worsening pain Pt takes norco RPN for pain. Pt doing ok currently abd pain1 Pt has persisten t constipation and abd pain .Pt told me GI told him he may ahve crohn disease [facility] he needs diffeerent referral since the referred doctor no longer treat crhon disease? knee pian1 Pt has chronic k nee pain. Pt takes norco PRN for pain pt seen ortho and no surgery. Pt has history of left knee surgery. Pt denies any swelling or worsening pain. anxiety1 Pt has chronic a nxiety. Pt denies any depression or any suicidal thought. Pt denies any cyring spells. Pt has not been taking buspar Pt sdtates that his anxiety is better now and he does not want to take any meds anymore lFT Pt had mildly el evated LFT. Pt had repeat LFt done which is neative along with negative hepatitis. Pt recenlty was admitted for small bowel obstruction. Pt currenlty donig ok. Pt denies any nasuea, vomiting. Pt is seeing GI and he will haev MRCP soon per patient. Pt denies any abdominal pain WBC His leukocytosis completely resolved on recent lab. Pt denies any fever, chilll knee pain1 Pt has chronic k nee pain,. Pt takes norco PRN for pain and doing ok. Pt denies any worsening pain small bowel Pt recenlty admi tted to hospital for partial small bowel obstruction. pt was admited to hospital for 6 days. Pt did have leukocytosis which resolved. Pt had small intestine capsule study which was normal per patient. Pt denies any nausa, vomiting, diarrhea . Pt is moving bowel now. He has mild midepigastic pain LFT Pt has mild high LFT and also some nonspecific liver lesion on Ct scan. knee pain1 Pt has chornic k nee pain Pt denies any worsening pain. Pt takes norco PRn for pain anxity1 Pt c/o severe an xiety and stress. Pt denies any depression or any suicidal thought. Pt denies any cyring spells chronic pain Pt has chronic l eft hip and left knee pain Pt had left knee surgery in the past Pt just seen ortho and he had left hip xray done which showed some arthritis Ortho told him he needs to see pain management for his painl. he also has low back pain as well. Pt denies any loss of bowel or bladder control. Pt does left sciatica. Pt was referred to pain management. Pt was told left hip surgery will not help. Pt denies any injury physical Pt needs annuial physical. Pt has chornic left knee pain. Pt has arthritis. Pt did see ortho and did PT and also cortisone injection which only helped slighlty. Pt now c/o left hip pain for several months. Pt denies any injury. Pt c/o persistent left hip pain. Pt also has RA. Pt is off ramicade. Pt just got back on bedoya and he has appointment with lead technician soon. Pt denies any other complaints knee pain1 Pt has chronic l eft knee pain Pt recenlty had left knee arthroscopic surgery recently. Pt had his left meniscus removed Pt denies any knee swelling or worsening pain RA Pt has RA. Pt is not any ramicade anymore. Pt was seeing [facility] rheumatology but they stopped seeing him since he got on [place]. Pt states that all his joint pain is getting worse since stopping ramicade chronic pain Pt has chornic k nee pain. Pt denies any worsening pain. Pt takes norco PRN for pain. Pt denies any swellig. abd pain Pt states that h e feels food stuck in his stomach area. pt denies any nauea, vomiting. Pt had normal gastric empty study. knee pain1 Pt c/o knee pain Pt seen ortho and received injection and he did not think it worked. Pt takes norco PRn for pain abd pain1 Pt has midepigat jorden pain worse with food. Pt had negative hida scan per patient and he was told no surgery for gallbladder removal for now. Pt will do capsule study soon. Pt is on omeprazole but he does not think it is helping. Pt states that he feels constipated and he feels his food gets stuffed up after food which causes pain. pt feels mild nauea sometimes GERD1 Pt has GERD symp toms with esophagitis. Pt states that omeprazole is not approved. Pt has not been taking omeparzole. Pt denie any abd apin. Pt states taht his GERD symptoms have been better with better diet knee pain1 Pt has chornic l eft knee pain. Pt had MRI done which showed meniscus tear Pt takes norco PRN for pain. Pt denies any knee swelling knee pain1 Pt has chronic l eft knee pain. Pt deniies any swelling. Pt has 7/10 left knee pain daily. Pt c/o sharp pain GERD1 Pt has GERD with esophaghitis but no radha. pt has gallbladder polyp. Pt still has not done surgeon yet for gallbladder removal. Pt denie any acute abd pain. Pt doing ok with omeprzole abd pain1 Pt has intermitt ent right upper quadrant abd pain, worse with food. Pt has gallbladder polyp but hIDA negative. Pt was suggested by gI to see surgeon for gallbladder removal. Pt denies any nauea, vomiting, diarrhea abd pain1 Pt has persisten t epigastric pain, worse with food. Pt has some dysphagia. Pt had EGD done which was normal per pt last week. Pt thinks that omeprazole does help pt denies any acute pain. pt had benign HIDA scan. proteinuria1 Pt had urine alb umin done which was negative. No UTi symptoms knee pain1 Pt has chronic l eft knee pain. Pt has RA Pt takes norco for pain. Pt has RA. Pt take remicade. Pt seees rheumatology. lymph1 Pt has mild left submandibular pain with lyphnode. pt seen ENT and was told to follow up soon. HLP Pt has mild high TG Pt is not on any diet proteinruia1 Pt has mild prot einuria. Pt has RA. Pt denies any UTI symptoms knee leobardo Pt has left knee pain, Pt has 6/10 pain daily Pt takes norco for pain PRN dysphagia1 Pt has mild dysp hagia and he has some neck swelling .Pt seen ENT and was told to follow up in 6 weeks. Pt is on omeprzole. Pt has vague epigastric pain, wrose with food. Pt has gallbladder polyp knee pain knee pain1 Pt has chornic k nee pain. Pt has joint pain Pt taks norco for pain PRn and doing ok. Pt denies any worsening pain dysphagia1 Pt has chronic d ysphagia and he has chornic epigastric pain with food. Pt denies any nausea or vomiting. Pt c/o left side of neck pain. Pt had neck CT which showed enlarged tonsil and also reactive lymph. Pt notices epigastric pain with food. neck pain1 Pt c/o left side neck pain chronically. Pt notices pain with swallowing Pt has sore throat Pt has enlarged tonsil PHysical Pt needs annual physical. pt has chornic knee pain. Pt has rA and he takes ramicade by lead technician. Pt recently had colonoscopy with constipation IBS symptoms and he was told he has some polyps and needs to repeat in 5 years. Pt has been having bilateral upper arm pain for 3 weeks. Pt denies any neck pain. Pt denies any radiculopathy. PT statse that he notices a tender spot left submandibular area. Pt does have GERD sometimes and he states that he has some difficulty with swallowing sometimes. knee pain1 Pt has chronic l eft knee pain. Pt denies any worsening pain. Pt denies any acute injury Pt denies any swelling. pt has 7/10 sharp pain daily. Pt is s/p right knee surgery and pain but worse on left side joint pain1 Pt has chronic l eft knee pain Pt denies any worsenign pain Pt denies any swelling RA Pt is on remicad e Pt sees rheumatology. Pt has diffuse joint pain KNee pain1 Pt c/o chronic l eft knee pain. Pt denies any worsening pain. pt denies any swelling. Pt c/o constant sharp pain left knee Pt medeiros snot have insurance to have surgery/ Pt has memiscus tear. Pt also has RA. Pt is on remicade/ Pt sees rheumatology klnee pain Pt c/o chronic l eft knee pain. Pt denies any worsening pain. Pt has RA and he sees rheumatology. PT denies any new complaitns Instructions Date Instruction Additional Infor mation Weight gain advised Related to B nelsy mass index (BMI) 19.9 or less, adult Increase physical activity Relat ed to Rheumatoid arthritis Weight gain advised Related to B nelsy mass index (BMI) 19.9 or less, adult Increase physical activity Relat ed to Cholesterolosis of gallbladder Increase physical activity Relat ed to Emphysema Increase activity. Related to En cntr for general adult medical exam w/o abnormal findings Increase physical activity Relat ed to Emphysema Increase physical activity Relat ed to Chronic pain syndrome Quit smoking Related to Rheum atoid arthritis Increase physical activity Relat ed to Chronic pain syndrome Increase physical activity Relat ed to Rheumatoid arthritis Increase physical activity Relat ed to Liver disease Increase physical activity Relat ed to Liver disease Compliant with medic ation instruction Related to Liver disease Medications as instructed Relate d to Abdominal pain Increase physical activity Relat ed to Encounter for general adult medical exam w abnormal findings Quit smoking Related to Chron ic pain syndrome Increase physical activity Relat ed to Chronic pain syndrome Diet and exercise Related to Vannesa n in left knee Increase physical activity Relat ed to Chronic pain syndrome Prescribed Diet Educ ation/Lifestyle Education Regarding Diet Related to Dietary Surveillance and Counseling Prescribed Activity and Exercise Education Related to Dietary Surveillance and Counseling Increase physical activity Relat ed to Generalized Anxiety Disorder Increase physical activity Relat ed to Other partial intestinal obstruction Increase physical activity Relat ed to Pain in left hip Quit smoking Related to Encou nter for general adult medical exam w abnormal findings Increase physical activity Relat ed to Encounter for general adult medical exam w abnormal findings Weight management Related to Enc ounter for general adult medical exam w abnormal findings Diet and exercise Related to Enc ounter for general adult medical exam w abnormal findings Assessments Type Assessment Date assessment Chronic pain syndrome Mental Status Date Cognitive Assessment Orientation - [place] ed to time, place, person, situation.
--- OUTSIDE RECORDS SUMMARY | 2024-11-10 11:46 | XMS_ITS | Clinical Summary ---
Author Organization [facility] [employer] Address [address] [place] [address] Care Team Providers Care Rip Sawyer Name Role Phone Yoshi Toscano MD Primary Care Provider [phone] Samantha Mcnamara RN Unavailable Unavailable Danica Reardon MD Unavailable [phone] Source Comments [facility] [employer],non-owned Affiliates and Associated Physician Practices is amultiple site organization consisting of ambulatory clinics and hospital sitesin [place], [place], [place] and [place]. This disclosure is being madepursuant to the Care Everywhere program and may not contain all information available regarding this patient. Last updated 18.[facility] [employer] Allergies Active Allergy Reactions Criticality Noted Date Comments Clindamycin Nausea and/or Vomiting Low 09/07/2018 Latex Urticaria,Skin Reactions Medium 10/07/2016 blisters Pollen Extract Itching 10/07/2016 scallop [Other] Unknown Medium 01/20/2018 Tested positive skin test Sesame Oil Itching Medium 01/20/2018 Sesame seeds. Shellfish Allergy Anaphylaxis,Urticari a,S kin Reactions High 10/07/2016 Throat itches and get tight Sulfacetamide Other Low 08/10/2018 Sulfasalazine Rash,Contact Dermatitis,Skin Reactions Medium 10/15/2017 Sulindac Vomiting Low 08/10/2018 Tree Nuts Diarrhea,Vomiting High 12/02/2019 Medications * Be aware that medications may not be up to date on this document. Alwaysverify current medications with the patient. OtherIndication s:cannabis oil once daily Reasons: cannabis oil Active albuterol HFA (PROVENTIL;VENT DYLAN;PROAIR) 108 (90 Base) MCG/ACT inhaler 1 (one) puff every 4 hours as needed 0 9 Active Elastic Bandages & Supports (KNEE BRACE/HINGED/RE GULAR) MISC Use 1 Units once daily 1 Each 9 Active tiotropium (SPIRIVA) 18 MCG inhalation capsule Inhale by mouth every 24 hours 0 Active HYDROcodone-saeed taminophen (Ringgold) 7.5-325 MG tablet Take 1 (one) tablet by mouth 2 times daily 4 Active predniSONE (Deltasone) 5 MG tabletIndicatio ns:Rheumatoid arthritis, seropositive, multiple sites (HCC) Take 1 (one) tablet by mouth as needed (5 tabs all at once day 1., 4 tabs day 2. In a.m., 3 tabs in a.m. day 3., 2 tabs in a.m. day 4., 1 tab in a.m. day 5. 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 Melanocytic nevi of trunk 06/25/2018 IBS (irritable bowel syndrome) 02/04/2018 Rheumatoid arthritis involvi ng multiple sites with positive rheumatoid factor 10/21/2017 Long-term use of hydroxychloroquine 10/21/2017 Assessment & Plan (09/29/2024 1:32 PM CDT): I have reviewed the potential side effects associated with the use of hydroxychloroquine including but not limited to the occurrence of ocular toxicity (estimated at about 1 in 1,000 risk after 5 continuous years use when given at no greater than 5 mg/kg/day) and the need for an annual eye screening examinations for the safe long-term use of this medication. Trenton Esqueda has voiced good understanding of these risks, need for appropriate monitoring and is in agreement to continue use of this medication. Other tear of medial meniscu s, current injury, left knee, subsequent encounter 10/10/2016 Pain in left knee 07/31/2016 Other chronic pain 07/31/2016 Resolved Problems Problem Noted Date Diagnosed Date Resolved Date Encounter for therapeutic drug monitoring 10/21/2017 09/29/2024 Assessment & Plan (04/01/2024 1:30 PM CDT): I have reviewed the potential side effects associated with the use of hydroxychloroquine including but not limited to the occurrence of ocular toxicity (estimated at about 1 in 1,000 risk after 5 continuous years use when given at no greater than 5 mg/kg/day) and the need for an annual eye screening examinations for the safe long-term use of this medication. Trenton Esqueda has voiced good understanding of these risks, need for appropriate monitoring and is in agreement to continue use of this medication. Encounters Date Type Department Care Team Description 11/09/2024 Results Follow-Up [facility] - Rheumatology [address] [place] [address] [address] [place] [address] Pedro Trevizo DO 11/04/2024 Orders Only [facility] - Rheumatology [address] [place] [address] [address] [place] [address] Pedro Trevizo DO 09/29/2024 1:20 PM CDT Office Visit [facility] - Rheumatology [facility] [address] [place] [address] Pedro Trevizo, Rheumatoid arthritis involving multiple sites with positive rheumatoid factor (Primary Dx); Long-term use of hydroxychloroquine 08/19/2024 Telephone [facility] - Rheumatology [facility] [address] [place] [address] Pedro Trevizo DO Refill Request 08/19/2024 Refill [facility] - Rheumatology [address], [address] [place] [address] Pedro Trevizo DO MEDICATION REFILL from Last 3 Months Family History Medical History Relation Name Comments None Known Brother Status: Alive Other - Cardiac Father Status: Aline avalos Diabetes - Type 2 Mother Status: Sergio de luna Arthritis - Rheumatoid Paternal Grandmother Status: Cancer - Colon Paternal Grandmother Cancer - Stomach Paternal Grandmother None Known Sister Status: Alive Asthma Neg Hx CVA Neg Hx Cancer - Breast Neg Hx Cancer - Other Neg Hx Cancer - Skin, Melanoma Neg Hx Cancer - Skin, Non Melanoma Neg Hx Eczema Neg Hx Hemophilia Neg Hx Psoriasis Neg Hx Relation Name Status Comments Brother Alive Daughter 1 Alive Daughter 2 Alive Father Alive Maternal Grandfather Maternal Grandmother Alive Mother Alive Paternal Grandfather Paternal Grandmother Sister Social History Tobacco Use Types Packs/Day Years Used Date Smoking Tobacco: Former Cigarettes 1.5 15 0 10/22/1999 - 10/21/2014 Smokeless Tobacco: Never Tobacco Cessation:Counseling Given: Not Answered Alcohol Use Standard Drinks/Week Comments No 0 (1 standard drink = 0.6 oz pur e alcohol) PHQ-2 Answer Date Recorded Patient Health Questionnaire-2 Score 0 09/29/2024 Sex and Gender Information Value Date Recorded Sex Assigned at Not on file Legal 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 Gender Identity Not on file Sexual Orientation Not on file Last Filed Vital Signs Vital Sign Reading Time Taken Comments Blood Pressure 122/80 09/29/2024 1:09 PM CDT Pulse 77 09/29/2024 1:09 PM CDT Temperature 36.1 C (97 F) 09/29/2024 1:09 PM CDT Respiratory Rate 16 09/29/2024 1:09 PM CDT Oxygen Saturation 98% 09/29/2024 1:09 PM CDT Inhaled Oxygen Concentration - - Weight 58.1 kg (128 lb) 09/29/2024 1:09 PM CDT Height 167.6 cm (5' 6 ) 04/01/2024 1:09 PM CDT Body Mass Index 20.66 04/01/2024 1:09 PM CDT Plan of Treatment Upcoming Encounters Date Type Department Care Team (Late st Contact Info) Description 09/28/2025 1:20 PM CDT Office Visit [facility] - Rheumatology [address], [address] [place] [address] Pedro Trevizo DO [address] [place] [address] Health Maintenance Due Date Last Done Comments COLOGUARD (AGES 45-75) - COL ON CA SCREENING 1971 COLON MONITORING 1971 COLONOSCOPY - COLON CA SCREENING 1971 CT COLONOGRAPHY - COLON CA SCREENING 1971 Colorectal Cancer Screening 1971 FIT - COLON CA SCREENING 1971 FLEX SIG - COLON CA SCREENING 1971 LIPID TESTING 1971 HIV SCREENING 1986 DTAP/TDAP/TD VACCINES (1 - Tdap) 1990 HEPATITIS B VACCINE (1 of 3 - 19+ 3-dose series) 1990 PNEUMOCOCCAL VACCINE 50+ (1 of 1 - PCV) 2021 ZOSTER VACCINE (1 of 2) 2021 COVID-19 VACCINE (1 - 2023-2 5 season) 2024 INFLUENZA VACCINE (Season Ended) 2025 HEPATITIS C SCREENING Completed 06/16/2020 DEPRESSION SCREENING Completed 09/29/2024 HIB VACCINE Aged Out No longer eligi ble based on patient's age to complete this topic HPV VACCINE Aged Out No longer eligi ble based on patient's age to complete this topic MENINGOCOCCAL (Group B) VACC INE SHARED DECISION-MAKING Aged Out No longer eligibl e based on patient's age to complete this topic MENINGOCOCCAL GROUPS A/C/Y/W VACCINE Aged Out No longer eligible b ased on patient's age to complete this topic Goals Goal Patient Goal Type Associated Problems Recent Progress Patient-Stated? Author Medication Management General On track( 022 3:12 PM CDT) Cassie Morley, RN Note: Expected end date: ongoing Interventions: Take all medications as prescribed Let your doctor know right away about any changes in your medications Make sure to request a refill of your medication at least one week prior to your last dose Procedures Procedure Name Priority Date/Time Associated Diagnosis Comments C-REACTIVE PROTEIN 11/04/2024 11 :33 AM CDT ERYTHROCYTE SEDIMENTATION RATE 11/04/2024 11:33 AM CDT HEPATITIS SCREEN ACUTE 2:00 PM GORE INSERTER from Last 3 Months or Most Recently Relevant to Health Maintenance Results * C-REACTIVE PROTEIN (11/04/2024 11:33 AM CDT) C-Reactive Protein <3.0 <8.0 mg/L [facility] Comment: Test Performed at: [employer] [facility] [place] [address] ROB YODER MD 11/04/2024 11:3 3 AM CDT 11/04/2024 11:33 AM CDT Pedro Trevizo DO LAB - CHEMISTRY ORDERABLES Final Result Performing Organization Address [facility] de Phone Number [facility] [address] [place] [address] * ERYTHROCYTE SEDIMENTATION RATE (11/04/2024 11:33 AM CDT) Erythrocyte Sedimentation Rate Westergren 2 < OR = 20 mm/h [facility] Comment: Test Performed at: [employer] [facility] [place] [address] ROB YODER MD 11/04/2024 11:3 3 AM CDT 11/04/2024 11:33 AM CDT Pedro Trevizo DO LAB - HEMATOLOGY ORDERABLES Rosario l Result Performing Organization Address [facility] Co de Phone Number [facility] [address] [place] [address] * HEPATITIS SCREEN ACUTE (06/16/2020 2:00 PM GORE INSERTER) Hepatitis A Virus Antibody IgM NON-REACT LANRE NON-REACT LANRE [facility] Comment: For additional information, please refer to http://education.IS Decisions/faq/FGV898 (This link is being provided for informational/ educational purposes only.) Hepatitis B Virus Surface Antigen NON-REACT LANRE NON-REACT LANRE [facility] Confirmation [facility] Hepatitis B Core Virus Antibody IgM NON-REACT LANRE NON-REACT LANRE [facility] Hepatitis C Antibody NON-REACT LANRE NON-REACT LANRE [facility] Signal to Cut-Off 0.01 <1.00 [facility] Comment: HCV antibody was non-reactive. There is no laboratory evidence of HCV infection. In most cases, no further action is required. However, if recent HCV exposure is suspected, a test for HCV RNA (test code 03192) is suggested. For additional information please refer to http://education.IS Decisions/faq/BAI20u0 (This link is being provided for informational/ educational purposes only.) Test Performed at: [facility] [address] [place] [address] ADINA WHITE DO,MPH 06/16/2020 2:00 PM GORE INSERTER 06/16/2020 2:01 PM GORE INSERTER Juliocesar Holland MD LAB - CHEMISTRY ORDERABLES Final Result Performing Organization Address City/State/[facility] [place] Phone Number [facility] [address] [place] [address] from Last 3 Months or Most Recently Relevant to Health Maintenance Insurance [facility] Care Teams Rip Sawyer Relationship Specialty Start Date End Date Yoshi Toscano MD [address] [place] [address] PCP - General 07/31/16 Samantha Mcnamara, ANDRES Registered Nurse Gastroenterology 01/22/18 Danica Reardon MD Pin Game Machine Inspector Gastroenterology 01/22/18
--- OUTSIDE RECORDS SUMMARY | 2024-11-10 11:46 | XMS_ITS ---
Care Plan - [facility] Created on: November 10, 2024 TRENTON IGLESIAS : 1970 Sex: Male Author Organization [facility] Address [address] [place] [address] Phone Care Team Providers Care Global Analytics Head Name Role Phone SAUL DANIELS, TRISTON De Los Santos Unavailable
--- OUTSIDE RECORDS SUMMARY | 2024-11-10 11:46 | XMS_ITS | Encounter Summary ---
Author Organization [facility] Address [address] [place] [address] [place] [address] Care Team Providers Care Intranet Support Name Role Phone Yoshi Toscano MD Primary Care Provider Samantha Mcnamara RN Unavailable Unavailable Danica Reardon MD Unavailable [phone] Encounter Details Date Type Department Care Team (Late Contact Info) Description 11/09/2024 Results Follow-Up [facility] - Rheumatology [address] [place] [address], [address] [place] [address] [place] [address] [place] [address] [address] [place] [address] Social History Tobacco Use Types Packs/Day Years Used Date Smoking Tobacco: Former Cigarettes 1.5 15 0 10/22/1999 - 10/21/2014 Smokeless Tobacco: Never Alcohol Use Standard Drinks/Week Comments No 0 (1 standard drink = 0.6 oz pur e alcohol) PHQ-2 Answer Date Recorded Patient Health Questionnaire-2 Score 0 09/29/2024 Sex and Gender Information Value Date Recorded Sex Assigned at Not on file 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 Author Medication Management General On track( 022 3:12 PM CDT) Cassie Morley RN Note: Expected end date: ongoing Interventions: Take all medications as prescribed Let your doctor know right away about any changes in your medications Make sure to request a refill of your medication at least one week prior to your last dose documented as of this encounter Visit Diagnoses Not on filedocumented in this encounter Care Teams Intranet Support Relationship Specialty Start Date End Date Yoshi Toscano MD [address] [facility] [address] [facility] [address] [place] [address] PCP - General 07/31/16 Samantha Mcnamara RN Registered Nurse Gastroenterology 01/22/18 Danica Reardon MD Hat Steamer Gastroenterology 01/22/18 documented as of this encounter
--- OUTSIDE RECORDS SUMMARY | 2024-11-10 11:46 | XMS_ITS | Clinical Summary ---
Author Organization [facility] Address [address] [place] [address] Care Team Providers Care Running Specialist Name Role Phone Akhil Rae MD Primary Care Provider [phone] Social History Tobacco Use Types Packs/Day Years Used Date Smoking Tobacco: Never Assessed Sex and Gender Information Value Date Recorded Sex Assigned at Not on file Legal Sex Male 4:28 PM CDT Gender Identity Not on file Sexual Orientation Not on file Last Filed Vital Signs Vital Sign Reading Time Taken Comments Blood Pressure 108/72 08/28/2016 2:38 PM TURNER IN Pulse 80 08/28/2016 2:38 PM TURNER IN Temperature - - Respiratory Rate - - Oxygen Saturation - - Inhaled Oxygen Concentration - - Weight 54.4 kg (120 lb) 08/28/2016 2:38 PM TURNER IN Height 167.6 cm (5' 6 ) 08/28/2016 2:38 PM TURNER IN Body Mass Index 19.37 08/28/2016 2:38 PM TURNER IN Plan of Treatment Health Maintenance Due Date Last Done Comments Colorectal Cancer Screening Colonoscopy (10 Years) 1971 Annual Physical 1974 Hepatitis C 1989 DTaP, Tdap and Td Vaccines ( 1 - Tdap) 1990 Hepatitis B Vaccines (1 of 3 - 19+ 3-dose series) 1990 Pneumococcal Vaccine: 50+ Ye ars (1 of 1 - PCV) 2021 Zoster Vaccines (1 of 2) 2021 COVID-19 Vaccine ( - 2023-2 5 season) 2024 Meningococcal B Vaccine Aged Out No l onger eligible based on patient's age to complete this topic Meningococcal Vaccine Aged Out No tamara amelia eligible based on patient's age to complete this topic RSV Immunizations Under 20 Months Aged Out No longer eligible based on patient's age to complete this topic Care Teams Running Specialist Relationship Specialty Start Date End Date Akhil Rae MD [address] [facility] [address] [place] [address] PCP - General 12/26/10
--- OUTSIDE RECORDS SUMMARY | 2024-11-10 11:46 | XMS_ITS ---
Author Organization [facility] Address [address] [place] [address] Phone Care Team Providers Care Armature Repairer Name Role Phone SAUL DANIELS, TRISTON Unavailable Unavailable Plan of Treatment No Plan of Treatment Recorded Assessments Includes: Assessments for all patient encounters No Assessments Recorded Medical Equipment - Implanted Devices Includes: Current and historical Devices No Medical Equipment Recorded Medications Administered Includes: Administered Medications in patient's chart No Administered Medications Recorded Results Includes: Results from 11/11/2023 through 11/10/2024 No Results Recorded For Specified Dates History of Present Illness History of Present Illness not supported for this document type No History of Present Illness Recorded Social History No Social History Recorded - Smoking Status Unknown Medical History Includes: Medical History in patient's chart No Medical History Recorded Family History Includes: Family History in patient's chart No Family History Recorded Review of Systems Review of Systems not supported for this document type No Review of Systems Recorded Mental Status No Mental Status Recorded Functional Status No Functional Status Recorded Physical Exam Physical Exam not supported for this document type No Physical Exam Recorded Insurance Includes: Active Insurance Policies No Insurance Coverage Recorded Guarantor Relationship Effective Dates Guarantor Ph one TRENTON IGLESIAS Self [id number] Clinical Notes Includes: Signed Clinical Notes starting from 08/02/2022 No Clinical Notes Recorded
== END 2024-11-10 10:31 | disposition home or self-care (01) ==
PROVIDERS: PCP Emergency Medicine; Visit Provider Emergency Medicine
DX: Z12.2 Encounter for screening for malignant neoplasm of respiratory organs (principal); Z87.891 Personal history of nicotine dependence
CPT/HCPCS: 71271

== ENCOUNTER 2024-12-24 07:38 | Outpatient (CLI) | payer OTHER, SELFPAY ==
--- NOTE | ~2024-12-24 | CT_ITS ---
CT ANGIOGRAM NECK AND HEAD History: Neck pain. Technique: Axial noncontrast imaging of the brain was performed. Serial spiral axial images through t he head and neck were then obtained during arterial phase IV injection of 100 cc of Omnipaque 350. 3- D postprocessing and MIP images were then reconstructed on the remote workstation. Dose reduction charis hnique was used on this scan by utilizing automated exposure control and iterative reconstruction charis hnique. The dose-length product (DLP) was 1575.67 mGy-cm. CTA neck findings: Bilateral vertebral arteries are patent. Bowel, carotid, internal carotid, and ex ternal carotid arteries are patent. No large vessel occlusion or stenosis. No aneurysm. The proximal right internal carotid artery demonstrates 0% stenosis relative to the normal distal artery lumen eleanor meter. The proximal left internal carotid artery demonstrates 0% stenosis relative to the normal dist al artery lumen diameter. CTA head findings: Distal vertebral arteries, basilar artery, and posterior sugars are patent. Distal internal carotid arteries, middle cerebral arteries, and anterior cerebral arteries are patent. No l arge vessel occlusion or stenosis. No aneurysm. Axial noncontrast imaging of the brain is unremarkable. No acute infarct, internal hemorrhage, or mas s lesion identified. No mass effect or midline shift. Green-white differentiation intact. Ventricles a nd subarachnoid spaces are unremarkable. There is mild bilateral ethmoid sinus disease. Remaining par anasal sinuses and mastoid air cells are clear. Calvarium intact. Impression: Unremarkable exam. Reviewed, dictated and finalized at [facility]. Impression: Unremarkable exam.
== END 2024-12-24 07:39 | disposition home or self-care (01) ==
PROVIDERS: PCP Emergency Medicine; Visit Provider Emergency Medicine
DX: G44.209 Tension-type headache, unspecified, not intractable (principal); M54.2 Cervicalgia
CPT/HCPCS: 70496; 70498; Q9967